=== PATIENT | female | born 1935 | race Caucasian/White ===

== ENCOUNTER 2017-06-28 17:28 | Inpatient (IN) | payer MEDICARE, OTHER ==
[2017-06-28 17:54] LABS: Granulocyte Absolute (ANC) 10.23 (1.4-6.9); Hemoglobin 12.6 gm/dl (12.0-16.0); Mean Cell Volume 85.4 fl (78-100); Mean Corpuscular Hemoglobin 28.3 pg (26-32); Mean Corpuscular Hgb Concent. 33.2 g/dl (32-36); Mean Platelet Volume 10.2 fl (6-9.5); Platelet Count 290 K/mm3 (150-450); Red Blood Count 4.45 M/mm3 (4.1-5.4); Red Cell Distribution Width 15.8 % (11.5-14.0); White Blood Count 13.7 K/mm3 (4.0-10.5)
[2017-06-28 18:09] LABS: ANION GAP 15.9 MEQ/L (5-15); BILIRUBIN,TOTAL 0.5 mg/dL (0.2-1.3); Calcium 10.4 mg/dL (8.4-10.2); Creatinine 1 1.28 mg/dL (0.52-1.04); Potassium 4.4 mmol/L (3.5-5.1); Total Protein 7.6 g/dL (6.3-8.2)
[2017-06-28] MEDS ORDERED: DUONEB 0.5-3 MG/3 ml Neb IH ONE ×2 (18:33→18:43)
[2017-06-28] MEDS ORDERED: ROCEPHIN 1 Gm-D5w 50 ml Bag** 1 G/50 ML IVPB IV STA (18:34)
--- NOTE | 2017-06-28 19:06 | ERPHSYRPT ---
- History of Present Illness Time Seen by Provider: 06/28/17 18:19 Source: patient, family (daughter in law) Patient Subjective Stated Complaint: pt here for pain to chest nonradiating, pt also co pain to head,no fver, cough,nonproductive Triage Nursing Assessment: pt alert, resp easy,skin w/d/p,no edeman Physician History: CC: cough Hx: 81 y/o patient who formerly saw Dr Torres العراقي who since retired. She saw [facility] for cough of few days duration. She was given an abtx shot and Rx for zithromax. She is almost done with the zithromax. She continues to have cough, phlegm, low grade fever. Some chest discomfort with coughing. Not short of breath. Severity: moderate Allergies/Adverse Reactions: aspirin [From Aggrenox] Allergy (Verified 06/28/17 17:45) clonidine Allergy (Verified 06/28/17 17:45) dipyridamole [From Aggrenox] Allergy (Verified 06/28/17 17:45) Hx Influenza Vaccination/Date Given: Yes Hx Pneumococcal Vaccination/Date Given: Yes Immunizations Up to Date: Yes - Review of Systems Constitutional: Fever, Fatigue, Malaise Eyes: No Symptoms Ears, Nose, & Throat: No Symptoms Respiratory: Cough, No Dyspnea Cardiac: Chest Pain (with cough) Abdominal/Gastrointestinal: No Abdominal Pain, No Nausea, No Vomiting, No Diarrhea Skin: No Rash Neurological: No Headache All Other Systems: Reviewed and Negative - Past Medical History Pertinent Past Medical History: Yes Cardiac History: High Cholesterol, Hypertension Endocrine Medical History: Diabetes Type II, Hypothyroidism Other Medical History: factor 5 - Past Surgical History Past Surgical History: Yes Female Surgical History: Hysterectomy Other Surgical History: bladder surgery, skin ca removed - Social History Smoking Status: Never smoker Exposure to second hand smoke: No Drug Use: none Patient Lives Alone: Yes - Female History Hx Last Menstrual Period: post Hx Now: No - Nursing Vital Signs Nursing Vital Signs: Initial Vital Signs Temperature 99.5 F 06/28/17 17:33 Pulse Rate 79 06/28/17 17:33 Respiratory Rate 16 06/28/17 17:33 Blood Pressure 145/75 06/28/17 17:33 Pain Scale Pain Intensity 4 - Physical Exam General Appearance: alert Eye Exam: PERRL/EOMI Ears, Nose, Throat Exam: normal ENT inspection, moist mucous membranes Neck Exam: normal inspection, non-tender, supple Respiratory Exam: crackles/rales (both bases) Cardiovascular Exam: regular rate/rhythm Gastrointestinal/Abdomen Exam: soft, No tenderness, No distention Back Exam: normal inspection, normal range of motion Extremity Exam: normal inspection, normal range of motion, No calf tenderness, No pedal edema Neurologic Exam: alert, oriented x 3, cooperative, sensation nml, No motor deficits Skin Exam: warm, dry, No rash SpO2 Interpretation: hypoxic, O2 applied SpO2: 90 Oxygen Delivery: Room Air - Course Nursing assessment & vital signs reviewed: Yes EKG Interpreted by Me: RATE (77), Sinus Rhythm, NORMAL AXIS, NORMAL INTERVALS ( QTc 401), NORMAL QRS, NORMAL ST-T - Radiology Exams cxr X-ray Interpretation: Reviewed by me (mild interval developement of bibasilar infiltrates) Ordered Tests: Active Orders 24 hr Category Date Time Status Garnett Machine Operator STAT Care 06/28/17 17:49 Active EKG-ER Only STAT Care 06/28/17 17:48 Active IV Insertion STAT Care 06/28/17 17:48 Active Oxygen-ED Only NASAL CANNULA 2 lpm Care 06/28/17 17:48 Active Pulse Oximetry (ED) STAT Care 06/28/17 17:48 Active CHEST 2 VIEWS (PA AND LAT) Stat Exams 06/28/17 17:49 Taken BLOOD CULTURE Stat Lab 06/28/17 18:33 Ordered CBC W DIFF Stat Lab 06/28/17 17:40 Completed CMP Stat Lab 06/28/17 17:40 Completed Manual Differential NC Stat Lab 06/28/17 17:40 Completed TROPONIN Q3H Lab 06/28/17 17:40 Completed TROPONIN Q3H Lab 06/28/17 21:00 Ordered TROPONIN Q3H Lab 06/29/17 00:00 Ordered TROPONIN Q3H Lab 06/29/17 03:00 Ordered TROPONIN Q3H Lab 06/29/17 06:00 Ordered Respiratory Nebulizer STAT RT 06/28/17 18:34 Active Medication Summary Generic Name Dose Route Start Last Admin Trade Name Freq PRN Reason Stop Dose Admin Ceftriaxone Sodium/Dextrose 1 g in 50 mls @ 100 mls/hr 06/28/17 18:34 Rocephin 1 Gm-D5w 50 Ml Bag IV 06/28/17 19:03 STAT STA Discontinued Medications Generic Name Dose Route Start Last Admin Trade Name Eliu PRN Reason Stop Dose Admin Albuterol/Ipratropium 3 ml 06/28/17 18:33 Duoneb 0.5-3 Mg/3 Ml Neb IH 06/28/17 18:34 STAT ONE Albuterol/Ipratropium Confirm 06/28/17 18:43 Duoneb 0.5-3 Mg/3 Ml Neb Administered 06/28/17 18:44 Dose 3 ml IH .STK-MED ONE Lab/Rad Data: Laboratory Result Diagrams 06/28/17 17:40 06/28/17 17:40 Laboratory Results 06/28/17 06/28/17 06/28/17 Range/Units 17:40 17:40 17:40 WBC 13.7 H (4.0-10.5) K/mm3 RBC 4.45 (4.1-5.4) M/mm3 Hgb 12.6 (12.0-16.0) gm/dl Hct 38.0 (35-47) % MCV 85.4 (78-100) fl MCH 28.3 (26-32) pg MCHC 33.2 (32-36) g/dl RDW 15.8 H (11.5-14.0) % Plt Count 290 (150-450) K/mm3 MPV 10.2 H (6-9.5) fl Sodium 139 (137-145) mmol/L Potassium 4.4 (3.5-5.1) mmol/L Chloride 100 (98-107) mmol/L Carbon Dioxide 27 (22-30) mmol/L Anion Gap 15.9 H (5-15) MEQ/L BUN 35 H (7-17) mg/dL Creatinine 1.28 H (0.52-1.04) mg/dL Estimated GFR 42 ML/MIN Glucose 114 H (74-106) mg/dL Calcium 10.4 H (8.4-10.2) mg/dL Total Bilirubin 0.50 (0.2-1.3) mg/dL AST 25 (14-36) U/L ALT 19 (0-35) U/L Alkaline Phosphatase 81 (38-126) U/L Troponin I < 0.012 (0.000-0.034) ng/mL Serum Total Protein 7.6 (6.3-8.2) g/dL Albumin 4.0 (3.5-5.0) g/dL - Progress Progress Note: 06/28/17 19:06 She has low grade fever. She has failed OP treatment. Blood cultures sent. Flu pending. Will admit for IV rocephin, nebs, and oxygen. Called Dr Jason Cordero for [facility]. Discussed with Dr.: Alexander Will see patient in: hospital (full admit) Counseled pt/family regarding: lab results, diagnosis, need for follow-up, rad results - Departure Time of Disposition: 19:07 Departure Disposition: In-patient Admission Clinical Impression: Hypoxemia Pneumonia Qualifiers: Pneumonia type: due to unspecified organism Laterality: bilateral Condition: Fair Critical Care Time: No
[2017-06-28] MEDS ORDERED: ROCEPHIN 1 Gm-D5w 50 ml Bag** 1 G/50 ML IVPB IV ONE (19:09)
[2017-06-28 20:24] LABS: INFLUENZA A NEGATIVE (NEGATIVE); INFLUENZA B NEGATIVE (NEGATIVE); RESPIRATORY SYNCTIAL VIRUS NEGATIVE (Negative)
[2017-06-28] MEDS: TYLENOL 325 MG PO PRN (21:35)
[2017-06-28] MEDS: Pepcid 20 MG VIAL IV SCH (21:36)
[2017-06-28] MEDS ORDERED: DUONEB 0.5-3 MG/3 ml Neb IH SCH (23:00)
[2017-06-29] MEDS ORDERED: ECOTRIN 81 MG PO ONE (00:28)
[2017-06-29] MEDS: ECOTRIN 81 MG PO SCH ×2 (00:35→21:29)
[2017-06-29] MEDS: ZOCOR 20MG PO SCH ×2 (00:35→21:29)
[2017-06-29] MEDS: Apresoline 25 MG TABLET PO SCH ×4 (00:35→21:29)
[2017-06-29] MEDS: Lactated Ringers 500 ML IV SCH ×2 (00:35→21:36)
[2017-06-29 02:04] LABS: Lymphocytes 17 % (24-44); Monocyte 9 % (0.0-12.0); Neutrophils 74 % (36.0-66.0); Platelet Estimate NORMAL (NORMAL); Total Cells Counted 100
[2017-06-29] MEDS ORDERED: DUONEB 0.5-3 MG/3 ml Neb IH ONE (03:28)
[2017-06-29] MEDS: TYLENOL 325 MG PO PRN ×2 (04:57→23:11)
[2017-06-29] MEDS: DUONEB 0.5-3 MG/3 ml Neb IH SCH ×5 (07:14→23:53)
[2017-06-29] MEDS ORDERED: NovoLOG Insulin SQ PRN (07:26)
--- NOTE | 2017-06-29 07:38 | PCM.HP ---
History of Present Illness - Chief Complaint Chief Complaint: Pneumonia Date: 06/29/17 History of Present Illness: is a 81 year old female. she became sick Thursday with coughing and congestion and shortness of breath [facility] and clinically felt to have pneumonia so given "a shot" and zpack and felt better but poor again thursday weak and short of breath and was not improving and finally Thursday came to ED. She lives at [facility] with multiple sick contacts from influenza but her serology was negative. - Review of Systems Constitutional: Fever, Fatigue, No Chills Eyes: No Symptoms Ears, Nose, & Throat: No Symptoms Respiratory: Cough Cardiac: No Chest Pain, No Edema, No Syncope Abdominal/Gastrointestinal: No Abdominal Pain, No Nausea, No Vomiting, No Diarrhea Genitourinary Symptoms: No Dysuria Musculoskeletal: No Back Pain, No Neck Pain Skin: No Rash Neurological: No Dizziness, No Focal Weakness, No Sensory Changes Psychological: No Symptoms Endocrine: No Symptoms Hematologic/Lymphatic: No Symptoms Immunological/Allergic: No Symptoms Medications & Allergies Home Medications: Home Medication List Amlodipine Besylate [Amlodipine Besylate] 5 mg PO BID 06/28/17 [History Confirmed 06/28/17] Aspirin 81 gm Chew [Baby Aspirin 81 mg Chew] 81 mg PO HS 06/28/17 [ History Confirmed 06/28/17] Calcium Carbonate/Vitamin D3 [Calcium 600 + Vit D 400 Tablet] 1 each PO BID [History Confirmed 06/28/17] Cholecalciferol (Vitamin D3) [Vitamin D] 400 unit PO LUNCH 06/28/17 [ History Confirmed 06/28/17] HydrALAzine HCL 25 MG TAB [Apresoline 25 MG TABLET] 50 mg PO TID 06/28/17 [History Confirmed 06/28/17] Krill Oil/[place]-3/Dha/Epa [[place]-3 Krill Oil Softgel] 1 each PO LUNCH 06/28/17 [ History Confirmed 06/28/17] Levothyroxine Sodium 112 Mcg [Synthroid 112 Mcg] 112 mcg PO DAILY 06/28/17 [History Confirmed 06/28/17] Losartan Potassium [Losartan Potassium] 50 mg PO BID 06/28/17 [History Confirmed 06/28/17] Metformin HCl Xr 500 mg [Glucophage XR 500 MG] 500 mg PO LUNCH 06/28/17 [ History Confirmed 06/28/17] Metoprolol Tartrate [Metoprolol Tartrate] 25 mg PO BID 06/28/17 [History Confirmed 06/28/17] Multivitamins,Therapeutic Tab* [Theragran Multivitamin] 1 tab PO DAILY [History Confirmed 06/28/17] Rosuvastatin Calcium 10 mg PO HS 06/28/17 [History Confirmed 06/28/17] Vit C/E/Zn/Coppr/Lutein/Zeaxan [Preservision Areds 2 Softgel] 1 each PO BID [History Confirmed 06/28/17] Allergies/Adverse Reactions: Allergies Allergy/AdvReac Type Severity Reaction Status Date / Time aspirin [From Aggrenox] Allergy Verified 06/28/17 17:45 clonidine Allergy Verified 06/28/17 17:45 dipyridamole [From Aggrenox] Allergy Verified 06/28/17 17:45 - Past Medical History Past Medical History: Yes Cardiac History: High Cholesterol, Hypertension Endocrine Medical History: Diabetes Type II, Hypothyroidism Comment: factor 5 - Female History Hx Last Menstrual Period: post Are you now?: No - Past Surgical History Past Surgical History: Yes Female Surgical History: Hysterectomy Other Surgical History: bladder surgery, skin ca removed - Social History Smoking Status: Never smoker Exposure to second hand smoke: No Alcohol: None Drug Use: none - Physical Exam Vital Signs: Vital Signs - 24 hr Temp Pulse Pulse Resp BP BP Pulse Ox 06/29/17 04:05 97.8 F 76 22 141/66 95 06/29/17 00:56 76 20 93 L 06/29/17 00:00 97.9 F 76 20 142/63 93 L 06/28/17 21:40 98.9 F 80 22 170/71 93 L 06/28/17 19:28 75 18 159/67 92 L 06/28/17 19:07 90 L 06/28/17 18:50 75 16 96 06/28/17 18:20 92 L 06/28/17 17:33 99.5 F 77 79 16 145/75 Oxygen-Last 24 hours O2 Percentage 3 Liters = 32% O2 Percentage 3 Liters = 32% O2 Percentage 2 Liters = 28% O2 Percentage 2 Liters = 28% Oxygen Flowrate (L/min)-RT 3 General Appearance: no apparent distress, alert Neurologic Exam: alert, oriented x 3, cooperative, normal mood/affect, nml cerebellar function, nml station & gait, sensation nml, No motor deficits Eye Exam: PERRL/EOMI, eyes nml inspection Ears, Nose, Throat Exam: normal ENT inspection, pharynx normal, moist mucous membranes Neck Exam: normal inspection, non-tender, supple, full range of motion Respiratory Exam: crackles/rales (bibasilar more prominent on right), No respiratory distress, No rhonchi, No wheezing Cardiovascular Exam: regular rate/rhythm, murmur (holosystolic) Gastrointestinal/Abdomen Exam: soft, normal bowel sounds, No tenderness, No mass Back Exam: normal inspection, normal range of motion, No CVA tenderness, No vertebral tenderness Extremity Exam: normal inspection, normal range of motion, pelvis stable Skin Exam: normal color, warm, dry, No rash Lymphatic Exam: No adenopathy Results - Other Procedures and Tests Respiratory Therapy 06/29/17 07:00 neb [Respiratory Nebulizer] Q4H Assessment/Plan (1) Pneumonia Current Visit: Yes Status: Acute Qualifiers: Pneumonia type: due to unspecified organism Laterality: bilateral Assessment & Plan: failed outpatient therapy with azithromycin continue rocehin and oxygen add hycrocortison wean O2 as tolerated lovenox ppx Code(s): J18.9 - PNEUMONIA, UNSPECIFIED ORGANISM (2) Acute hypoxemic respiratory failure Current Visit: Yes Status: Acute Assessment & Plan: improving on 3L nc O2 Code(s): J96.01 - ACUTE RESPIRATORY FAILURE WITH HYPOXIA (3) Essential hypertension Current Visit: Yes Status: Chronic Code(s): I10 - ESSENTIAL (PRIMARY) HYPERTENSION (4) Stage 3a chronic kidney disease Current Visit: Yes Status: Chronic Code(s): N18.3 - CHRONIC KIDNEY DISEASE, STAGE 3 (MODERATE) (5) Impaired fasting glucose Current Visit: Yes Status: Chronic Code(s): R73.01 - IMPAIRED FASTING GLUCOSE (6) Hypothyroid Current Visit: Yes Status: Acute Assessment & Plan: follows outpatient with Dr. Alicea Code(s): E03.9 - HYPOTHYROIDISM, UNSPECIFIED (7) Heart murmur Current Visit: Yes Status: Chronic Assessment & Plan: follows with Dr. Baltazar for "leaky valve" Code(s): R01.1 - CARDIAC MURMUR, UNSPECIFIED
[2017-06-29] MEDS: solu-CORTEF 100MG IV SCH ×3 (08:06→21:29)
--- NOTE | 2017-06-29 08:57 | XRAY ---
Indication: Chest pain and cough. Comparison: June 24, 2017. PA/lateral chest again demonstrates COPD and scattered fibrosis/scarring. New bibasilar infiltrates versus atelectasis with tiny effusions. Heart is not enlarged with stable large hiatal hernia.
[2017-06-29] MEDS: Lopressor 25MG Tab PO SCH ×2 (09:18→12:03)
[2017-06-29] MEDS: Cozaar 50 MG PO SCH ×2 (09:18→12:03)
[2017-06-29] MEDS: Ocuvite Tablet PO SCH ×2 (09:18→21:29)
[2017-06-29] MEDS: ROCEPHIN 1 Gm-D5w 50 ml Bag** 1 G/50 ML IVPB IV SCH (09:19)
[2017-06-29] MEDS: Pepcid 20 MG VIAL IV SCH ×2 (09:19→21:29)
[2017-06-29] MEDS: SYNTHROID 112 MCG PO SCH (09:19)
[2017-06-29] MEDS: ENOXAPARIN SODIUM SQ SCH (09:19)
[2017-06-29] MEDS: NORVASC 5 MG PO SCH ×2 (09:21→12:03)
[2017-06-29] MEDS ORDERED: NON-FORMULARY ITEM (Vit C/E/Zn/Coppr/Lutein/Zeaxan [Preservision Areds 2 Softgel] 1 EACH) PO SCH (10:00)
[2017-06-29] MEDS ORDERED: EPA PO SCH (12:00)
[2017-06-29] MEDS ORDERED: DHA PO SCH (12:00)
[2017-06-29] MEDS ORDERED: KRILL OIL PO SCH (12:00)
[2017-06-29] MEDS ORDERED: OMEGA PO SCH (12:00)
[2017-06-29] MEDS: FISH OIL 1,000 MG CAPSULE PO SCH (12:03)
[2017-06-30] MEDS: solu-CORTEF 100MG IV SCH ×4 (01:44→22:08)
[2017-06-30] MEDS: DUONEB 0.5-3 MG/3 ml Neb IH SCH ×5 (03:34→19:19)
[2017-06-30 05:37] LABS: Granulocyte Absolute (ANC) 8.71 (1.4-6.9); Hematocrit 35.2 % (35-47); Hemoglobin 11.6 gm/dl (12.0-16.0); Mean Cell Volume 85.4 fl (78-100); Mean Platelet Volume 10.2 fl (6-9.5); Platelet Count 277 K/mm3 (150-450); Red Blood Count 4.12 M/mm3 (4.1-5.4); Red Cell Distribution Width 15.8 % (11.5-14.0)
[2017-06-30 05:52] LABS: Mean Corpuscular Hemoglobin 28.1 pg (26-32)
[2017-06-30 05:59] LABS: ALBUMIN 3.5 g/dL (3.5-5.0); ANION GAP 14.7 MEQ/L (5-15); BILIRUBIN,TOTAL 0.2 mg/dL (0.2-1.3); Calcium 9.3 mg/dL (8.4-10.2); Creatinine 1 1.02 mg/dL (0.52-1.04); Potassium 4.1 mmol/L (3.5-5.1); Total Protein 6.6 g/dL (6.3-8.2)
[2017-06-30 06:24] LABS: Lymphocytes 7 % (24-44); Monocyte 2 % (0.0-12.0); Neutrophils 91 % (36.0-66.0); Total Cells Counted 100
[2017-06-30 06:25] LABS: Platelet Estimate NORMAL (NORMAL)
[2017-06-30] MEDS: Lactated Ringers 500 ML IV SCH ×2 (07:02→20:32)
--- NOTE | 2017-06-30 07:02 | PCM.NOTE ---
Date and Time: 06/30/17 0650 Subjective Assessment: tried to wean to room air yesterday was not successful with desat to mid 80's at rest improved with 3L NC O2. She has still been coughing nonproductive otherwise feeling well Objective Exam General Appearance: no apparent distress, alert Neurologic Exam: alert, oriented x 3, cooperative, normal mood/affect, nml cerebellar function, sensation nml, No motor deficits Skin Exam: normal color, warm, dry Eye Exam: PERRL, EOMI, eyes nml inspection Ears, Nose, Throat Exam: normal ENT inspection, pharynx normal, moist mucous membranes Neck Exam: normal inspection, non-tender, supple, full range of motion Respiratory Exam: crackles/rales (bibasilar), No respiratory distress Cardiovascular Exam: regular rate/rhythm, normal heart sounds Gastrointestinal/Abdomen Exam: soft, No tenderness, No mass Extremity Exam: normal inspection, normal range of motion Back Exam: normal inspection, normal range of motion, No CVA tenderness, No vertebral tenderness Pelvic Exam: deferred Rectal Exam: deferred OBJECTIVE DATA Vital Signs: Vital Signs - 24 hr Temp Pulse Resp BP Pulse Ox 06/30/17 06:39 78 16 94 L 06/30/17 04:00 97.7 F 92 H 16 156/68 95 06/30/17 03:34 92 H 16 95 06/30/17 00:00 97.9 F 100 H 20 129/60 95 06/29/17 23:53 91 H 20 94 L 06/29/17 21:02 82 22 92 L 06/29/17 20:00 98.3 F 82 26 H 158/68 92 L 06/29/17 16:25 98.4 F 84 28 H 146/61 94 L 06/29/17 12:00 97.8 F 97 H 32 H 142/65 97 06/29/17 11:00 88 18 98 06/29/17 07:41 98.1 F 69 20 160/70 92 L 06/29/17 07:00 69 18 92 L Oxygen-Last 24 hours O2 Percentage 3 Liters = 32% O2 Percentage 3 Liters = 32% Oxygen Flowrate (L/min)-RT 2 Oxygen Flowrate (L/min)-RT 3 Oxygen Flowrate (L/min)-RT 3 Oxygen Flowrate (L/min)-RT 3 Pain Assessment - Last Documented Pain Intensity 0 Pain Scale Used 0-10 Pain Scale Intake and Output: Intake & Output 06/27/17 06/28/17 06/29/17 06/30/17 11:59 11:59 11:59 11:59 Intake Total 1145 760 Output Total 550 760 Balance 595 0 Weight 73.5 kg Lab Results: Accuchecks Date 06/30/17 Accucheck Value: 154 Accucheck Value: 116 Accucheck Value: 111 Lab Results-Last 24 Hours 06/30/17 06/30/17 06/30/17 Range/Units 05:05 05:05 05:05 WBC 10.0 (4.0-10.5) K/mm3 RBC 4.12 (4.1-5.4) M/mm3 Hgb 11.6 L (12.0-16.0) gm/dl Hct 35.2 (35-47) % MCV 85.4 (78-100) fl MCH 28.1 (26-32) pg MCHC 33.0 (32-36) g/dl RDW 15.8 H (11.5-14.0) % Plt Count 277 (150-450) K/mm3 MPV 10.2 H (6-9.5) fl Segmented Neutrophils 91 H (36.0-66.0) % Lymphocytes (Manual) 7 L (24-44) % Monocytes (Manual) 2 (0.0-12.0) % Differential Comment NORMAL Platelet Estimate NORMAL (NORMAL) Sodium 137 (137-145) mmol/L Potassium 4.1 (3.5-5.1) mmol/L Chloride 101 (98-107) mmol/L Carbon Dioxide 25 (22-30) mmol/L Anion Gap 14.7 (5-15) MEQ/L BUN 31 H (7-17) mg/dL Creatinine 1.02 (0.52-1.04) mg/dL Estimated GFR 55 ML/MIN Glucose 152 H (74-106) mg/dL Hemoglobin A1c 5.86 (4.5-6.0) % Calcium 9.3 (8.4-10.2) mg/dL Total Bilirubin 0.20 (0.2-1.3) mg/dL AST 19 (14-36) U/L ALT 15 (0-35) U/L Alkaline Phosphatase 69 (38-126) U/L Serum Total Protein 6.6 (6.3-8.2) g/dL Albumin 3.5 (3.5-5.0) g/dL Multi-Disciplinary Progress Notes: Multi-Disciplinary Progress Notes 06/29/17 20:25 Respiratory Note by Evan Rae PT REQUESTED THAT I COME BACK AT 2100 FOR HER TX SHE HAD VISITORS. Initialized on 06/29/17 20:25 - END OF NOTE Assessment/Plan (1) Pneumonia Current Visit: Yes Status: Acute Qualifiers: Pneumonia type: due to unspecified organism Laterality: bilateral Assessment & Plan: improving with rocephin still with hypoxemia star Incentive spirometry wean O2 if able do overnight pulse oximetry study tonight she states she had difficulty getting off O2 2 years ago at hospitalization in [place] as well. Code(s): J18.9 - PNEUMONIA, UNSPECIFIED ORGANISM (2) Acute hypoxemic respiratory failure Current Visit: Yes Status: Acute Code(s): J96.01 - ACUTE RESPIRATORY FAILURE WITH HYPOXIA (3) Essential hypertension Current Visit: Yes Status: Chronic Code(s): I10 - ESSENTIAL (PRIMARY) HYPERTENSION (4) Stage 3a chronic kidney disease Current Visit: Yes Status: Chronic Code(s): N18.3 - CHRONIC KIDNEY DISEASE, STAGE 3 (MODERATE) (5) Impaired fasting glucose Current Visit: Yes Status: Chronic Code(s): R73.01 - IMPAIRED FASTING GLUCOSE (6) Hypothyroid Current Visit: Yes Status: Acute Code(s): E03.9 - HYPOTHYROIDISM, UNSPECIFIED (7) Heart murmur Current Visit: Yes Status: Chronic Code(s): R01.1 - CARDIAC MURMUR, UNSPECIFIED
[2017-06-30] MEDS ORDERED: Lactated Ringers 500 ML IV SCH (07:30)
[2017-06-30] MEDS: Cozaar 50 MG PO SCH ×2 (11:54→13:56)
[2017-06-30] MEDS: Ocuvite Tablet PO SCH ×2 (11:54→22:09)
[2017-06-30] MEDS: Apresoline 25 MG TABLET PO SCH ×3 (11:54→22:08)
[2017-06-30] MEDS: ENOXAPARIN SODIUM SQ SCH (11:54)
[2017-06-30] MEDS: ROCEPHIN 1 Gm-D5w 50 ml Bag** 1 G/50 ML IVPB IV SCH (11:55)
[2017-06-30] MEDS: SYNTHROID 112 MCG PO SCH (11:55)
[2017-06-30] MEDS: NORVASC 5 MG PO SCH ×2 (12:11→13:56)
[2017-06-30] MEDS: Lopressor 25MG Tab PO SCH ×2 (12:11→13:55)
[2017-06-30] MEDS: Pepcid 20 MG PO SCH ×2 (12:11→22:11)
[2017-06-30] MEDS: FISH OIL 1,000 MG CAPSULE PO SCH (12:11)
[2017-06-30] MEDS: ECOTRIN 81 MG PO SCH (22:09)
[2017-06-30] MEDS: ZOCOR 20MG PO SCH (22:09)
[2017-07-01] MEDS: DUONEB 0.5-3 MG/3 ml Neb IH SCH ×4 (00:35→10:43)
[2017-07-01] MEDS: solu-CORTEF 100MG IV SCH ×2 (04:39→08:33)
--- NOTE | 2017-07-01 08:23 | PCM.DS ---
Discharge Summary Date of Admission: 06/28/17 21:04 Date of Discharge: 07/01/2017 Admitting Physician: ESME OLIVER Primary Care Provider: ESME OLIVER Allergies Allergies aspirin [From Aggrenox] Allergy (Verified 06/28/17 17:45) clonidine Allergy (Verified 06/28/17 17:45) dipyridamole [From Aggrenox] Allergy (Verified 06/28/17 17:45) Hospital Summary - Hospital Course Hospital Course: Ms. Manzano lives at home alone and was treated as an outpatient for pneumonia with azithromycin but was not improving and had cxr showing worsening disease and hypoxemia. SHe was treated and improving on Rocephin. She was started on hydrocrotisone q6h as well at 50 mg with good results. SHe notes she had difficulty getting off oxygen when she was in the hospital 2 years ago for pneumonia as well. She was clinically improving and stable but requiring O2 overnight pulse ox was done with prolonged period in the 80 to 90% range. She had 6 min walk test done as well with desaturation recorded with this improved with 2L NC O2. She was discharged home on omnicef and home oxygen. f/u this week. - Vitals & Intake/Output Vital Signs: Vital Signs Temperature 97.8 F 07/01/17 07:30 Pulse Rate 85 07/01/17 07:30 Respiratory Rate 20 07/01/17 07:30 Blood Pressure 175/75 07/01/17 07:30 O2 Sat by Pulse Oximetry 92 L 07/01/17 07:30 Oxygen-Last Documented O2 Percentage 3 Liters = 32% Intake & Output: Intake & Output 06/28/17 06/29/17 06/30/17 07/01/17 11:59 11:59 11:59 11:59 Intake Total 1145 1120 720 Output Total 358 637 0925 Balance 595 360 -480 Weight 73.5 kg - Lab Result Diagrams: 06/30/17 05:05 06/30/17 05:05 Lab Results-Last 24 Hrs: Accuchecks Date 06/30/17 Accucheck Value: 132 Accucheck Value: 112 Accucheck Value: 143 Micro Results-Entire Visit: Accuchecks Date 06/30/17 Accucheck Value: 132 Accucheck Value: 112 Accucheck Value: 143 - Procedures and Test Procedures and Tests throughout Hospitalization: Therapy Orders & Screens 06/29/17 07:00 neb [Respiratory Nebulizer] Q4H Comment: Diagnosis: Pneumonia 06/30/17 07:01 Incentive Spirometry Assessmen UD Comment: Diagnosis: Pneumonia 07/01/17 08:20 Qualify for Home Oxygen ROUTINE Comment: Diagnosis: Pneumonia Discharge Exam General Appearance: no apparent distress, alert Neurologic Exam: alert, oriented x 3, cooperative, normal mood/affect, nml cerebellar function, sensation nml, No motor deficits Skin Exam: normal color, warm, dry Eye Exam: PERRL, EOMI, eyes nml inspection Ears, Nose, Throat Exam: normal ENT inspection, pharynx normal, moist mucous membranes Neck Exam: normal inspection, non-tender, supple, full range of motion Respiratory Exam: crackles/rales (bibasilar), No respiratory distress Cardiovascular Exam: regular rate/rhythm, normal heart sounds Gastrointestinal/Abdomen Exam: soft, No tenderness, No mass Extremity Exam: normal inspection, normal range of motion Back Exam: normal inspection, normal range of motion, No CVA tenderness, No vertebral tenderness Pelvic Exam: deferred Rectal Exam: deferred Final Diagnosis/Problem List - Final Discharge Diagnosis/Problem (1) Pneumonia Status: Acute (2) Acute hypoxemic respiratory failure Status: Acute (3) Essential hypertension Status: Chronic (4) Stage 3a chronic kidney disease Status: Chronic (5) Impaired fasting glucose Status: Chronic (6) Hypothyroid Status: Acute (7) Heart murmur Status: Chronic - Discharge Discharge Date: 07/01/17 Disposition: Home, Self-Care Condition: Stable Prescriptions: New Cefdinir [Omnicef] 300 mg PO BID #10 capsule Continue Metoprolol Tartrate 25 mg PO BID Cholecalciferol (Vitamin D3) [Vitamin D] 400 unit PO LUNCH Krill Oil/[place]-3/Dha/Epa [[place]-3 Krill Oil Softgel] 1 each PO LUNCH Levothyroxine Sodium 112 Mcg [Synthroid 112 Mcg] 112 mcg PO DAILY Metformin HCl Xr 500 mg [Glucophage XR 500 MG] 500 mg PO LUNCH Losartan Potassium 50 mg PO BID Amlodipine Besylate 5 mg PO BID Vit C/E/Zn/Coppr/Lutein/Zeaxan [Preservision Areds 2 Softgel] 1 each PO BID Calcium Carbonate/Vitamin D3 [Calcium 600 + Vit D 400 Tablet] 1 each PO BID Multivitamins,Therapeutic Tab* [Theragran Multivitamin] 1 tab PO DAILY HydrALAzine HCL 25 MG TAB [Apresoline 25 MG TABLET] 50 mg PO TID Aspirin 81 gm Chew [Baby Aspirin 81 mg Chew] 81 mg PO HS Rosuvastatin Calcium 10 mg PO HS Instructions: Pneumonia, Adult (DC) Additional Instructions: [facility] TO SERVICE YOUR OXYGEN NEEDS PER YOUR REQUEST OF PROVIDER. YOU MAY REACH THEM AT [phone] FOR ANY NEEDS. Follow up with: ESME OLIVER [Primary Care Provider] - 07/08/17 9:30 am Forms: Discharge Instructions
[2017-07-01] MEDS: Ocuvite Tablet PO SCH (09:42)
[2017-07-01] MEDS: NORVASC 5 MG PO SCH ×2 (09:42→11:46)
[2017-07-01] MEDS: ENOXAPARIN SODIUM SQ SCH (09:42)
[2017-07-01] MEDS: SYNTHROID 112 MCG PO SCH (09:43)
[2017-07-01] MEDS: Lopressor 25MG Tab PO SCH ×2 (09:43→11:46)
[2017-07-01] MEDS: Cozaar 50 MG PO SCH ×2 (09:43→11:46)
[2017-07-01] MEDS: Apresoline 25 MG TABLET PO SCH (09:43)
[2017-07-01] MEDS: Pepcid 20 MG PO SCH (09:43)
[2017-07-01] MEDS: FISH OIL 1,000 MG CAPSULE PO SCH (11:46)
[2017-07-01 12:40] VITALS: BP 155/67; PULSE 72; O2SAT 95
== END 2017-07-01 12:32 | disposition home or self-care (01) | DRG 193 ==
LOC: ED 17:28 → MED SURG 21:04
PROVIDERS: ADMIT Family Medicine; ATTEND Family Medicine
DX: R09.02 Hypoxemia (principal); J18.9 Pneumonia, unspecified organism; I10 Essential (primary) hypertension; J96.01 Acute respiratory failure with hypoxia; I12.9 Hypertensive chronic kidney disease with stage 1 through stage 4 chronic kidney disease, or unspecified chronic kidney disease; N18.3 Chronic kidney disease, stage 3 (moderate); R73.01 Impaired fasting glucose; E03.9 Hypothyroidism, unspecified; R01.1 Cardiac murmur, unspecified; E11.9 Type 2 diabetes mellitus without complications
CPT/HCPCS: 36000; 36415; 71046; 80053; 82962; 83036; 84484; 85025; 87040; 87631; 93005; 93041; 94150; 94640; 94760; 96365; 99285; J0696; J1650; J1720; A9270-GY

== ENCOUNTER 2018-07-08 17:32 | Emergency (ER) | payer MEDICARE ==
--- NOTE | 2018-07-08 18:49 | ERPHSYRPT ---
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 pt fell from standing height, pt fell onto carpeted nghia, pt put her hands out to break her fall. pt denies LOC, pt denies striking her head or any other injury. pt reports pain to the right wrist that radiates up the forearm, pain is worse with movement. Triage Nursing Assessment: pt is axo3, pupils perrl, afebrile, resps easy and non labored, radial pulses are strong and equal, deformity noted to the right wrist with swelling, skin is intact, pt sensation is intact, ROM is limited due to pain, cap refill < 3 seconds. pt skin pink warm dry. no other obvious injury or deformity noted. Physician History: 82 y/o right handed white female presents with right wrist pain and swelling after a fall. pt tripped over an ottoman at home. no head or neck injury. Occurred: just prior to arrival Reason for Fall: tripped Injuries/Pain Location: upper extremity (right wrist) Loss of Consciousness: no loss of consciousness Severity of Pain-Max: moderate Severity of Pain-Current: mild (when not moving it) Modifying Factors: Improves With: immobilization (better), movement (worsens) Associated Symptoms (Fall): denies symptoms Allergies/Adverse Reactions: clonidine Allergy (Verified 07/08/18 18:00) dipyridamole [From Aggrenox] Allergy (Verified 07/08/18 18:00) Home Medications: Amlodipine Besylate 5 mg PO BID 06/28/17 [History] Aspirin 81 gm Chew [Baby Aspirin 81 mg Chew] 81 mg PO HS 06/28/17 [History ] Calcium Carbonate/Vitamin D3 [Calcium 600 + Vit D 400 Tablet] 1 each PO BID [History] Cholecalciferol (Vitamin D3) [Vitamin D] 400 unit PO LUNCH 06/28/17 [ History] HydrALAzine HCL 25 MG TAB [Apresoline 25 MG TABLET] 50 mg PO TID 06/28/17 [History] Krill Oil/[place]-3/Dha/Epa [[place]-3 Krill Oil Softgel] 1 each PO LUNCH 06/28/17 [ History] Levothyroxine Sodium 112 Mcg [Synthroid 112 Mcg] 112 mcg PO DAILY 06/28/17 [History] Losartan Potassium 50 mg PO BID 06/28/17 [History] Metformin HCl Xr 500 mg [Glucophage XR 500 MG] 500 mg PO LUNCH 06/28/17 [ History] Metoprolol Tartrate 25 mg PO BID 06/28/17 [History] Multivitamins,Therapeutic Tab* [Theragran Multivitamin] 1 tab PO DAILY [History] Rosuvastatin Calcium 10 mg PO HS 06/28/17 [History] Vit C/E/Zn/Coppr/Lutein/Zeaxan [Preservision Areds 2 Softgel] 1 each PO BID [History] Hx Tetanus, Diphtheria Vaccination/Date Given: No Hx Influenza Vaccination/Date Given: Yes Hx Pneumococcal Vaccination/Date Given: Yes Immunizations Up to Date: Yes - Review of Systems Constitutional: No Symptoms Eyes: No Symptoms Ears, Nose, & Throat: No Symptoms Respiratory: No Symptoms Cardiac: No Symptoms Abdominal/Gastrointestinal: No Symptoms Genitourinary Symptoms: No Symptoms Musculoskeletal: Fall, Injury, Joint Pain, Joint Swelling Skin: No Symptoms Neurological: No Symptoms Psychological: No Symptoms Endocrine: No Symptoms Hematologic/Lymphatic: No Symptoms Immunological/Allergic: No Symptoms All Other Systems: Reviewed and Negative - Past Medical History Pertinent Past Medical History: Yes Neurological History: No Pertinent History ENT History: No Pertinent History Cardiac History: High Cholesterol, Hypertension Endocrine Medical History: Diabetes Type II, Hypothyroidism Musculoskeletal History: No Pertinent History GI Medical History: No Pertinent History History: No Pertinent History Psycho-Social History: No Pertinent History Female Reproductive Disorders: No Pertinent History Other Medical History: factor 5 - Past Surgical History Past Surgical History: Yes Neuro Surgical History: No Pertinent History Cardiac: No Pertinent History Respiratory: No Pertinent History Gastrointestinal: No Pertinent History Genitourinary: No Pertinent History Musculoskeletal: No Pertinent History Female Surgical History: Hysterectomy Other Surgical History: bladder surgery, skin ca removed - Social History Smoking Status: Never smoker Exposure to second hand smoke: No Drug Use: none Patient Lives Alone: Yes - Nursing Vital Signs Nursing Vital Signs: Initial Vital Signs Temperature 98.8 F 07/08/18 17:46 Pulse Rate 73 07/08/18 17:46 Respiratory Rate 20 07/08/18 17:46 Blood Pressure 156/73 07/08/18 17:46 O2 Sat by Pulse Oximetry 94 L 07/08/18 17:46 Pain Scale Pain Intensity 6 - Poplar Coma Score Best Eye Response (Poplar): (4) open spontaneously Best Verbal Response (Marva): (5) oriented Best Motor Response (Marva): (6) obeys commands Marva Total: 15 - Physical Exam General Appearance: mild distress, alert, anxiety Head Injury: no evidence of injury, No active bleeding, No Pacheco's Sign, No contusions, No raccoon eyes, No tenderness Eye Exam: PERRL/EOMI, eyes nml inspection ENT Exam: airway nml, nml ext.inspection, No evidence of ENT injury Neck Exam: supple, trachea midline, full range of motion, normal alignment Respiratory/Chest Exam: normal breath sounds, No chest tenderness, No respiratory distress Cardiovascular Exam: normal heart sounds, regular rate/rhythm Gastrointestinal Exam: soft, normal bowel sounds, No tenderness Rectal Exam: not done Back Exam: normal inspection, normal range of motion, No CVA tenderness, No vertebral tenderness Extremity Exam: swelling (right wrist), tenderness (right wrist) Neurologic Exam: alert, oriented x 3, cooperative, 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 07/08/18 18:56 pt only wants plain tylenol. will send home a percocet rx in case she requires stronger. Counseled pt/family regarding: diagnosis, need for follow-up, rad results - Departure Departure Disposition: Home Clinical Impression: Fracture of distal radius and ulna Condition: Stable Critical Care Time: No Referrals: CARYN LITTLE MD [Primary Care Provider] - Additional Instructions: ice pack to area 3 times daily for 2 days. follow up with orthopedic surgeon of choice tomorrow morning for further management Prescriptions: Oxycodone HCl/Acetaminophen [Percocet 5-325 mg Tablet] 1 each PO Q6H PRN PRN # 12 tablet MDD 4 PRN Reason: Pain
[2018-07-08] MEDS ORDERED: PERCOCET TABLET 5/325MG PO STA (18:53)
[2018-07-08] MEDS ORDERED: TYLENOL EXTRA STRENGTH 500 MG PO STA (18:57)
[2018-07-08] MEDS ORDERED: TYLENOL EXTRA STRENGTH 500 MG ONE (19:16)
[2018-07-08 19:43] VITALS: BP 178/74; PULSE 67; O2SAT 93
--- NOTE | 2018-07-09 09:04 | XRAY ---
Indication: Pain following fall. Comparison: None 3 views of the right wrist demonstrates osteopenia with minimally displaced acute comminuted fractures involving the distal radius and ulna with intra-articular extension and soft tissue swelling. Incidental mild degenerative changes base of 1st metacarpal. Remaining wrist unremarkable.
== END 2018-07-08 19:41 | disposition home or self-care (01) ==
LOC: ED 17:32
DX: S52.501A Unspecified fracture of the lower end of right radius, initial encounter for closed fracture (principal); S52.601A Unspecified fracture of lower end of right ulna, initial encounter for closed fracture; W18.09XA Striking against other object with subsequent fall, initial encounter; M25.531 Pain in right wrist; I10 Essential (primary) hypertension; E03.9 Hypothyroidism, unspecified; E11.9 Type 2 diabetes mellitus without complications; Z79.4 Long term (current) use of insulin; Z79.899 Other long term (current) drug therapy
CPT/HCPCS: 73110; 99284; A9270-GY

== ENCOUNTER 2018-10-02 17:38 | Emergency (ER) | payer MEDICARE ==
[2018-10-02] MEDS ORDERED: Sodium Chloride 0.9% 1000 ML 1,000 ML IV STA (17:54)
[2018-10-02] MEDS ORDERED: TYLENOL EXTRA STRENGTH 500 MG PO STA (17:55)
[2018-10-02] MEDS ORDERED: Sodium Chloride 0.9% 1000 ML 1,000 ML ONE (17:59)
[2018-10-02] MEDS ORDERED: TYLENOL EXTRA STRENGTH 500 MG ONE (17:59)
[2018-10-02 18:18] VITALS: BP 146/73
--- NOTE | 2018-10-02 18:20 | ERPHSYRPT ---
- History of Present Illness Time Seen by Provider: 10/02/18 18:17 Source: patient, family Exam Limitations: no limitations Physician History: 82-year-old female with significant past medical history of hypertension, started having fever with chills for last 2 days associated with cough. She states that she is running around 102 fever. She is also complaining of generalized weakness. 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 Associated Symptoms: cough, muscle aches Allergies/Adverse Reactions: clonidine Allergy (Verified 10/02/18 17:55) dipyridamole [From Aggrenox] Allergy (Verified 10/02/18 17:55) Home Medications: Amlodipine Besylate 5 mg PO BID 06/28/17 [History] Aspirin 81 gm Chew [Baby Aspirin 81 mg Chew] 81 mg PO HS 06/28/17 [History ] Calcium Carbonate/Vitamin D3 [Calcium 600 + Vit D 400 Tablet] 1 each PO BID [History] Cholecalciferol (Vitamin D3) [Vitamin D] 400 unit PO LUNCH 06/28/17 [ History] HydrALAzine HCL 25 MG TAB [Apresoline 25 MG TABLET] 50 mg PO TID 06/28/17 [History] Krill Oil/[place]-3/Dha/Epa [[place]-3 Krill Oil Softgel] 1 each PO LUNCH 06/28/17 [ History] Levothyroxine Sodium 112 Mcg [Synthroid 112 Mcg] 112 mcg PO DAILY 06/28/17 [History] Losartan Potassium 50 mg PO BID 06/28/17 [History] Metformin HCl Xr 500 mg [Glucophage XR 500 MG] 500 mg PO LUNCH 06/28/17 [ History] Metoprolol Tartrate 25 mg PO BID 06/28/17 [History] Multivitamins,Therapeutic Tab* [Theragran Multivitamin] 1 tab PO DAILY [History] Rosuvastatin Calcium 10 mg PO HS 06/28/17 [History] Vit C/E/Zn/Coppr/Lutein/Zeaxan [Preservision Areds 2 Softgel] 1 each PO BID [History] Hx Tetanus, Diphtheria Vaccination/Date Given: No Hx Influenza Vaccination/Date Given: Yes Hx Pneumococcal Vaccination/Date Given: Yes - Review of Systems Constitutional: Fever, Chills, Fatigue, Malaise, Weakness Eyes: No Symptoms Ears, Nose, & Throat: No Symptoms Respiratory: Cough, No Dyspnea Cardiac: No Chest Pain, No Edema, No Syncope Abdominal/Gastrointestinal: No Abdominal Pain, No Nausea, No Vomiting, No Diarrhea Genitourinary Symptoms: No Dysuria Musculoskeletal: No Back Pain, No Neck Pain Skin: No Rash Neurological: No Dizziness, No Focal Weakness, No Sensory Changes Psychological: No Symptoms Endocrine: No Symptoms All Other Systems: Reviewed and Negative - Past Medical History Pertinent Past Medical History: Yes Neurological History: No Pertinent History ENT History: No Pertinent History Cardiac History: High Cholesterol, Hypertension, Other Respiratory History: No Pertinent History Endocrine Medical History: Other Musculoskeletal History: Fractures, Osteoporosis GI Medical History: No Pertinent History History: No Pertinent History Psycho-Social History: No Pertinent History Female Reproductive Disorders: No Pertinent History Other Medical History: hx of thyroid function abnormality (takes prescription) - Past Surgical History Past Surgical History: Yes Neuro Surgical History: No Pertinent History Cardiac: No Pertinent History Respiratory: No Pertinent History Gastrointestinal: No Pertinent History Genitourinary: No Pertinent History Musculoskeletal: No Pertinent History Female Surgical History: Hysterectomy Other Surgical History: bladder surgery, skin ca removed - Social History Smoking Status: Never smoker Exposure to second hand smoke: No Drug Use: none Patient Lives Alone: Yes - Nursing Vital Signs Nursing Vital Signs: Initial Vital Signs Temperature 102.2 F 10/02/18 17:46 Pulse Rate 98 H 10/02/18 17:46 Respiratory Rate 24 10/02/18 17:46 Blood Pressure 146/73 10/02/18 17:46 O2 Sat by Pulse Oximetry 88 L 10/02/18 17:46 Pain Scale Pain Intensity 5 - Physical Exam General Appearance: mild distress, alert Eye Exam: PERRL/EOMI ENT Exam: normal ENT inspection, No pharyngeal erythema, No tonsillar exudate Neck Exam: supple, full range of motion, No meningismus Respiratory Exam: no respiratory distress, decreased air movement, crackles/ rales, rhonchi, wheezing Cardiovascular/Chest Exam: normal heart sounds, regular rate/rhythm, No murmur, No edema Gastrointestinal/Abdominal Exam: soft, non tender, no distention Extremity Exam: non-tender, normal range of motion, normal inspection, normal capillary refill Neurologic Exam: alert, oriented x 3, cooperative, 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 nml as tested, normal mood/affect, sensation nml, No motor deficits Skin Exam: normal color, warm, dry, No rash - Course Nursing assessment & vital signs reviewed: Yes EKG Interpreted by Me: Sinus Rhythm - Radiology Exams Chest X-ray Interpretation: Reviewed by me Ordered Tests: Active Orders 24 hr Category Date Time Status EKG-ER Only STAT Care 10/02/18 17:54 Active Oxygen-ED Only Nasal Cannula 2 lpm Care 10/02/18 17:54 Active CHEST 2 VIEWS (PA AND LAT) Stat Exams 10/02/18 17:54 Ordered BLOOD CULTURE Stat Lab 10/02/18 17:54 Ordered CBC W DIFF Stat Lab 10/02/18 18:25 Completed CMP Stat Lab 10/02/18 18:25 Received CULTURE,URINE Stat Lab 10/02/18 18:25 Received Lactic Acid Stat Lab 10/02/18 18:22 Completed UA W/RFX UR CULTURE Stat Lab 10/02/18 18:25 Completed Medication Summary Generic Name Dose Route Start Last Admin Trade Name Freq PRN Reason Stop Dose Admin Sodium Chloride 1,000 mls @ 999 mls/hr 10/02/18 17:54 10/02/18 18:00 Sodium Chloride 0.9% 1000 Ml IV 10/02/18 18:54 999 mls/hr .Q1H1M STA Administration Ceftriaxone Sodium/Dextrose 1 g in 50 mls @ 100 mls/hr 10/02/18 18:45 Rocephin 1 Gm-D5w 50 Ml Bag IV 10/02/18 19:14 STAT ONE Discontinued Medications Generic Name Dose Route Start Last Admin Trade Name Freq PRN Reason Stop Dose Admin Acetaminophen 1,000 mg 10/02/18 17:55 10/02/18 18:00 Tylenol Extra Strength 500 Mg PO 10/02/18 17:56 1,000 mg STAT STA Administration Acetaminophen Confirm 10/02/18 17:59 Tylenol Extra Strength 500 Mg Administered 10/02/18 18:00 Dose 1,000 mg .ROUTE .STK-MED ONE Sodium Chloride Confirm 10/02/18 17:59 Sodium Chloride 0.9% 1000 Ml Administered 10/02/18 18:00 Dose 1,000 mls @ ud .ROUTE .STK-MED ONE Ceftriaxone Sodium/Dextrose 2 g in 50 mls @ 100 mls/hr 10/02/18 18:43 18:45 Rocephin 2 Gm-D5w 50ml Bag IV 10/02/18 19:12 Not Given STAT STA Lab/Rad Data: Laboratory Result Diagrams 10/02/18 18:25 Laboratory Results 10/02/18 10/02/18 10/02/18 Range/Units 18:25 18:25 18:22 WBC 15.8 H (4.0-10.5) K/mm3 RBC 4.34 (4.1-5.4) M/mm3 Hgb 12.5 (12.0-16.0) gm/dl Hct 38.8 (35-47) % MCV 89.4 (78-100) fl MCH 28.8 (26-32) pg MCHC 32.2 (32-36) g/dl RDW 15.3 H (11.5-14.0) % Plt Count 201 (150-450) K/mm3 MPV 10.5 H (6-9.5) fl Gran % 80.3 H (36.0-66.0) % Eos # (Auto) 0.09 (0-0.5) Absolute Lymphs (auto) 1.36 (1.0-4.6) Absolute Monos (auto) 1.65 H (0.0-1.3) Lymphocytes % 8.6 L (24.0-44.0) % Monocytes % 10.4 (0.0-12.0) % Eosinophils % 0.6 (0.00-5.0) % Basophils % 0.1 (0.0-0.4) % Absolute Granulocytes 12.68 H (1.4-6.9) Basophils # 0.01 (0-0.4) Lactic Acid 1.2 (0.4-2.0) Urine Color BILLY (YELLOW) Urine Appearance CLOUDY (CLEAR) Urine pH 5.0 (5-6) Ur Specific [place] 1.018 (1.005-1.025) Urine Protein 100 (Negative) Urine Ketones TRACE (NEGATIVE) Urine Blood NEGATIVE (0-5) Campos/ul Urine Nitrite NEGATIVE (NEGATIVE) Urine Bilirubin NEGATIVE (NEGATIVE) Urine Urobilinogen 2 (0-1) mg/dL Ur Leukocyte Esterase LARGE (NEGATIVE) Urine WBC (Auto) >100 (0-5) /HPF Urine RBC (Auto) 3-5 (0-2) /HPF U Hyaline Cast (Auto) 0-2 (0-2) /LPF U Epithel Cells (Auto) RARE (FEW) /HPF Urine Bacteria (Auto) RARE (NEGATIVE) /HPF Urine Mucus (Auto) SLIGHT (NEGATIVE) /HPF Urine Culture Reflexed YES (NO) Urine Glucose NEGATIVE (NEGATIVE) mg/dL - Progress Progress: improved Counseled pt/family regarding: lab results, diagnosis, need for follow-up, rad results - Departure Departure Disposition: Home Clinical Impression: Pneumonia Qualifiers: Pneumonia type: due to unspecified organism Laterality: right Lung location: lower lobe of lung Qualified Code(s): J18.1 - Lobar pneumonia, unspecified organism UTI (urinary tract infection) Qualifiers: Urinary tract infection type: site unspecified Hematuria presence: without hematuria Qualified Code(s): N39.0 - Urinary tract infection, site not specified Condition: Stable Critical Care Time: Yes Critical Care Time(excluding separately billable procedures): 30-74 minutes Referrals: CARYN LITTLE MD [Primary Care Provider] - Instructions: Pneumonia, Adult (DC), Urinary Tract Infection, Adult (DC) Additional Instructions: Discharge/Care Plan YESENIA AGRAWAL was seen on 10/02/18 in the Emergency Room. The patient was counseled regarding Diagnosis,Lab results, Imaging studies, need for follow up and when to return to the Emergency Room. Prescriptions given: Discharge Note I have spoken with the patient and/or caregivers. I have explained the patient' s condition, diagnosis and treatment plan based on the information available to me at this time. I have answered the patient's and/or caregiver's questions and addressed any concerns. The patient and/or caregivers have as good understanding of the patient's diagnosis, condition and treatment plan as can be expected at this point. The vital signs have been stable. The patient's condition is stable and appropriate for discharge from the emergency department. The patient will pursue further outpatient evaluation with the primary care physician or other designated or consulting physician as outlined in the discharge instructions. The patient and/or caregivers are agreeable to this plan of care and follow-up instructions have been explained in detail. The patient and/or caregivers have received these instruction. The patient/and or caregivers are aware that any significant change in condition or worsening of symptoms should prompt an immediate return to this or the closest emergency department or call 911. Prescriptions: Levofloxacin [Levaquin] 250 mg PO DAILY #7 tablet
[2018-10-02 18:26] LABS: BASOPHIL % 0.1 % (0.0-0.4); Basophil (Absolute #) 0.01 (0-0.4); Eosinophil % 0.6 % (0.00-5.0); Eosinophil (Absolute #) 0.09 (0-0.5); Granulocyte Absolute (ANC) 12.68 (1.4-6.9); Granulocytes % 80.3 % (36.0-66.0); Hematocrit 38.8 % (35-47); Hemoglobin 12.5 gm/dl (12.0-16.0); Lymphocyte (Absolute #) 1.36 (1.0-4.6); Lymphocytes % 8.6 % (24.0-44.0); Mean Cell Volume 89.4 fl (78-100); Mean Corpuscular Hemoglobin 28.8 pg (26-32); Mean Corpuscular Hgb Concent. 32.2 g/dl (32-36); Mean Platelet Volume 10.5 fl (6-9.5); Monocytes % 10.4 % (0.0-12.0); Platelet Count 201 K/mm3 (150-450); Red Blood Count 4.34 M/mm3 (4.1-5.4); Red Cell Distribution Width 15.3 % (11.5-14.0); White Blood Count 15.8 K/mm3 (4.0-10.5)
[2018-10-02 18:32] LABS: Appearance CLOUDY (CLEAR); Bacteria RARE /HPF (NEGATIVE); Bilirubin NEGATIVE (NEGATIVE); Blood NEGATIVE Ery/ul (0-5); Epithelial Cells RARE /HPF (FEW); Glucose NEGATIVE (NEGATIVE); Hyaline Casts 0-2 /LPF (0-2); Ketones TRACE (NEGATIVE); Leukocyte Esterase LARGE (NEGATIVE); Mucus SLIGHT /HPF (NEGATIVE); Nitrite NEGATIVE (NEGATIVE); Protein,Urine Dip 100 (Negative); Specific Gravity 1.018 (1.005-1.025); Urobilinogen 2 mg/dL (0-1); WBC >100 /HPF (0-5)
[2018-10-02 18:37] LABS: ALBUMIN 4.3 g/dL (3.5-5.0); ANION GAP 15.9 MEQ/L (5-15); BILIRUBIN,TOTAL 0.8 mg/dL (0.2-1.3); Calcium 9.5 mg/dL (8.4-10.2); Creatinine 1 1.22 mg/dL (0.52-1.04); Potassium 4.2 mmol/L (3.5-5.1); Total Protein 7.8 g/dL (6.3-8.2)
[2018-10-02] MEDS ORDERED: ROCEPHIN 2 Gm-D5w 50ML BAG** 2 G/50 ML IVPB IV STA (18:43)
[2018-10-02 18:44] VITALS: PULSE 84; O2SAT 93
[2018-10-02] MEDS ORDERED: ROCEPHIN 1 Gm-D5w 50 ml Bag** 1 G/50 ML IVPB IV ONE (18:45)
--- NOTE | 2018-10-02 22:46 | XRAY ---
Indication: Fever and chills. Comparison: May 21, 2018. PA/lateral chest demonstrates new subtle right infrahilar infiltrate versus atelectasis. Stable COPD, scattered fibrosis/scarring, and large hiatal hernia. Heart is not enlarged. Bony thorax intact again with osteopenia, degenerative changes, and scoliosis.
[2018-10-02 23:51] LABS: Slide Review 1 YES
== END 2018-10-02 19:45 | disposition home or self-care (01) ==
LOC: ED 17:38
DX: J18.1 Lobar pneumonia, unspecified organism (principal); N39.0 Urinary tract infection, site not specified; I10 Essential (primary) hypertension; E78.00 Pure hypercholesterolemia, unspecified; Z79.899 Other long term (current) drug therapy
CPT/HCPCS: 36000; 36415; 71046; 80053; 81001; 83605; 85025; 87040; 87077; 87086; 87186; 93005; 96360; 96365; 96374; 96375; 99284; J0696; A9270-GY

== ENCOUNTER 2020-01-19 11:49 | Emergency (ER) | payer MEDICARE ==
--- NOTE | 2020-01-19 11:52 | ERPHSYRPT ---
- History of Present Illness Time Seen by Provider: 01/19/20 11:55 Source: patient Physician History: Patient is an 84-year-old female presents to our ED via EMS for evaluation of facial injury secondary to a fall. Patient arrived non-boarded. Patient was non-collared. Patient has abrasions to her nose. Patient has a nosebleed as well. Patient states she was ambulating when she missed stepped on a curb and fell forward onto her face. No loss of consciousness. The fall was not associated with any neuro or cardiovascular symptomology. Patient complains of pain to the bridge of her nose, her neck as well as left shoulder. No other injuries reported. We applied a cervical collar upon patient arrival. Patient denies chest pain or shortness of breath. No numbness tingling or weakness. 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 Patient voices no other complaints or concerns at this time. Occurred: just prior to arrival Severity: mild Head Injury Location: frontal Method of Injury: fell Loss of Consciousness: no loss of consciousness Associated Symptoms: denies symptoms, No nausea, No vomiting, No shortness of breath, No diaphoresis, No cough, No chills, No chest pain, No fever, No head aches, No loss of appetite, No malaise, No rash, No syncope, No seizure, No weakness Allergies/Adverse Reactions: clonidine Allergy (Verified 01/19/20 12:06) dipyridamole [From Aggrenox] Allergy (Verified 01/19/20 12:06) Home Medications: Amlodipine Besylate 5 mg PO BID 06/28/17 [History] Aspirin 81 gm Chew [Baby Aspirin 81 mg Chew] 81 mg PO HS 06/28/17 [History] Calcium Carbonate/Vitamin D3 [Calcium 600 + Vit D 400 Tablet] 1 each PO BID 06/28/17 [History] Cholecalciferol (Vitamin D3) [Vitamin D] 400 unit PO LUNCH 06/28/17 [History] HydrALAzine HCL 25 MG TAB [Apresoline 25 MG TABLET] 50 mg PO TID 06/28/17 [History] Levothyroxine Sodium 112 Mcg [Synthroid 112 Mcg] 112 mcg PO DAILY 06/28/17 [History] Losartan Potassium 50 mg PO BID 06/28/17 [History] Metformin HCl Xr 500 mg [Glucophage XR 500 MG] 500 mg PO LUNCH 06/28/17 [History] Metoprolol Tartrate 25 mg PO BID 06/28/17 [History] Multivitamins,Therapeutic Tab* [Theragran Multivitamin] 1 tab PO DAILY 06/28/17 [History] Rosuvastatin Calcium 10 mg PO HS 06/28/17 [History] Vit C/E/Zn/Coppr/Lutein/Zeaxan [Preservision Areds 2 Softgel] 1 each PO BID 06/28/17 [History] Furosemide 20 mg [Lasix 20 mg] 20 mg PO TID 10/02/18 [History] Potassium Chloride 10 Meq Tab* [Klor Con 10 MEQ] 10 meq PO TID 10/02/18 [History] Ubidecarenone/[place]-3/Vit E [Co Q-10-Vit E-Fish Oil Sfgl] 1 each PO DAILY 10/02/18 [History] Hx Tetanus, Diphtheria Vaccination/Date Given: No Hx Influenza Vaccination/Date Given: Yes Hx Pneumococcal Vaccination/Date Given: Yes - Review of Systems Constitutional: No Symptoms, No Fever, No Chills Eyes: No Symptoms Ears, Nose, & Throat: No Symptoms Respiratory: No Symptoms, No Cough, No Dyspnea Cardiac: No Symptoms, No Chest Pain, No Edema, No Syncope Abdominal/Gastrointestinal: No Symptoms, No Abdominal Pain, No Nausea, No Vomiting, No Diarrhea Genitourinary Symptoms: No Symptoms, No Dysuria Musculoskeletal: No Symptoms, No Back Pain, No Neck Pain Skin: No Symptoms, No Rash Neurological: No Symptoms, No Dizziness, No Focal Weakness, No Sensory Changes Psychological: No Symptoms Endocrine: No Symptoms Hematologic/Lymphatic: No Symptoms Immunological/Allergic: No Symptoms All Other Systems: Reviewed and Negative - Past Medical History Pertinent Past Medical History: Yes Neurological History: No Pertinent History ENT History: No Pertinent History Cardiac History: High Cholesterol, Hypertension, Other Respiratory History: No Pertinent History Endocrine Medical History: Other Musculoskeletal History: Fractures, Osteoporosis GI Medical History: No Pertinent History History: No Pertinent History Psycho-Social History: No Pertinent History Female Reproductive Disorders: No Pertinent History Other Medical History: hx of thyroid function abnormality (takes prescription) - Past Surgical History Past Surgical History: Yes Neuro Surgical History: No Pertinent History Cardiac: No Pertinent History Respiratory: No Pertinent History Gastrointestinal: No Pertinent History Genitourinary: No Pertinent History Musculoskeletal: No Pertinent History Female Surgical History: Hysterectomy Other Surgical History: bladder surgery, skin ca removed - Social History Smoking Status: Never smoker Exposure to second hand smoke: No Drug Use: none Patient Lives Alone: Yes - Nursing Vital Signs Nursing Vital Signs: Initial Vital Signs Temperature 97.4 F 01/19/20 11:51 Pulse Rate 68 01/19/20 11:51 Blood Pressure 181/80 01/19/20 11:51 O2 Sat by Pulse Oximetry 93 L 01/19/20 11:51 Pain Scale Pain Intensity 7 - [place] Coma Score Best Eye Response (Marva): (4) open spontaneously Best Verbal Response (Marva): (5) oriented Best Motor Response (Marva): (6) obeys commands [place] Total: 15 - Physical Exam General Appearance: no apparent distress, alert Eye Exam: bilateral eye: normal inspection, PERRL, EOMI ENT Exam: airway nml, evidence of ENT injury, clotted nasal blood, other (Facial swelling particularly around her left eye.), No dental injury, No clear fluid (ears), No clear fluid (nose), No midface instability (Patient bleeding from nose. 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 Exam: normal hearing, normal speech, PERRL, No abnormal eye position, No abnormal gag reflex, No abnormal pupil position, No abnormal speech, No facial asymmetry Motor/Sensory Exam: no motor deficit, no sensory deficit, CN II-XII intact Skin Exam: normal color, warm, dry, No rash Lymphatic Exam: No adenopathy SpO2 Interpretation: normal SpO2: 98 O2 Delivery: Room Air - Course Nursing assessment & vital signs reviewed: Yes - Radiology Exams Shoulder X-ray Interpretation: Teleradiologist Report (No fracture dislocation left shoulder.) - CT Exams Cervical Spine CT Interpretation: Tele-radiologist Report (C4 transverse process fracture through the foramen, foraminal stenosis osteopenia degenerative joint disease.) Head CT Interpretation: Tele-radiologist Report (Left frontal scalp hematoma) Ordered Tests: Active Orders 24 hr Category Date Time Status CERVICAL SPINE WO CONTRAST [CT] Stat Exams 01/19/20 11:56 Completed FACIAL BONES WO CONTRAST [CT] Stat Exams 01/19/20 11:52 Completed HEAD WITHOUT CONTRAST [CT] Stat Exams 01/19/20 11:52 Completed SHOULDER Stat Exams 01/19/20 11:53 Completed CBC W DIFF Stat Lab 01/19/20 15:34 Completed CMP Stat Lab 01/19/20 15:34 Completed UA W/RFX UR CULTURE Stat Lab 01/19/20 15:38 Ordered Medication Summary Discontinued Medications Generic Name Dose Route Start Last Admin Trade Name Freq PRN Reason Stop Dose Admin Morphine Sulfate 4 mg 01/19/20 15:16 01/19/20 15:20 Morphine Sulfate 4 Mg Inj IV 01/19/20 15:17 4 mg STAT ONE Administration Morphine Sulfate Confirm 01/19/20 15:19 Morphine Sulfate 4 Mg Inj Administered 01/19/20 15:20 Dose 4 mg .ROUTE .STK-MED ONE Ondansetron HCl Confirm 01/19/20 15:22 Zofran 4 Mg/2 Ml Vial Administered 01/19/20 15:23 Dose 4 mg .ROUTE .STK-MED ONE Ondansetron HCl 4 mg 01/19/20 15:34 01/19/20 15:37 Zofran 4 Mg/2 Ml Vial IV 01/19/20 15:35 4 mg STAT ONE Administration Lab/Rad Data: Laboratory Result Diagrams 01/19/20 15:34 01/19/20 15:34 Laboratory Results 01/19/20 01/19/20 Range/Units 15:34 15:34 WBC 10.9 H (4.0-10.5) K/mm3 RBC 4.57 (4.1-5.4) M/mm3 Hgb 13.0 (12.0-16.0) gm/dl Hct 40.4 (35-47) % MCV 88.4 (78-100) fl MCH 28.4 (26-32) pg MCHC 32.2 (32-36) g/dl RDW 16.2 H (11.5-14.0) % Plt Count 230 (150-450) K/mm3 MPV 10.5 (7.5-11.0) fl Gran % 80.4 H (36.0-66.0) % Eos # (Auto) 0.06 (0-0.5) Absolute Lymphs (auto) 1.31 (1.0-4.6) Absolute Monos (auto) 0.76 (0.0-1.3) Lymphocytes % 12.0 L (24.0-44.0) % Monocytes % 7.0 (0.0-12.0) % Eosinophils % 0.5 (0.00-5.0) % Basophils % 0.1 (0.0-0.4) % Absolute Granulocytes 8.78 H (1.4-6.9) Basophils # 0.01 (0-0.4) Sodium 138 (137-145) mmol/L Potassium 4.0 (3.5-5.1) mmol/L Chloride 102 (98-107) mmol/L Carbon Dioxide 29 (22-30) mmol/L Anion Gap 11.2 (5-15) MEQ/L BUN 27 H (7-17) mg/dL Creatinine 1.02 (0.52-1.04) mg/dL Estimated GFR 54.6 ML/MIN Glucose 110 H (74-106) mg/dL Calcium 10.0 (8.4-10.2) mg/dL Total Bilirubin 0.60 (0.2-1.3) mg/dL AST 42 H (14-36) U/L ALT 19 (0-35) U/L Alkaline Phosphatase 61 (38-126) U/L Serum Total Protein 8.0 (6.3-8.2) g/dL Albumin 4.7 (3.5-5.0) g/dL - Progress Progress: improved Progress Note: 01/19/20 16:15 Patient reassessed. Pain improved. Patient has a transverse process fracture and nasal bone fracture, nasal septum fracture inferior orbital wall fracture no entrapment maxillary wall fracture. [facility] [place] [facility] further evaluation and treatment. We attempted [facility] however they do not have the services available to accommodate our patient. Case discussed with Dr. Fernandez of the trauma service at [facility] who accepts ED to ED transfer. Plan of care discussed with patient. She agrees with transfer for further evaluation and treatment. Discussed with : Other Counseled pt/family regarding: lab results, diagnosis, rad results - Departure Departure Disposition: Extended Care Facility Clinical Impression: Cervical transverse process fracture, Foraminal stenosis of cervical region, Osteopenia, Degenerative arthritis, Nasal bone fracture, Orbital floor fracture, Nasal septum fracture, Maxillary fracture, Fall Condition: Stable Critical Care Time: No Referrals: CARYN LITTLE MD [Primary Care Provider] -
--- NOTE | 2020-01-19 12:48 | XRAY ---
Indication: Pain following fall. Multiple contiguous axial images obtained through the head without contrast. Comparison: May 21, 2018. Again age-appropriate global atrophy. No acute intracranial hemorrhage, abnormal extra-axial fluid collection, or mass effect. Fourth ventricle is midline without hydrocephalus. Tompkins-white matter differentiation preserved. New small left frontal scalp hematoma. Bony calvarium intact. CT facial bones and CT cervical spine reported separately. Impression: New left frontal scalp hematoma. No underlying fracture or acute intracranial abnormalities.
--- NOTE | 2020-01-19 12:55 | XRAY ---
Indication: Pain following fall. Multiple contiguous axial images obtained through the cervical spine. Sagittal and coronal reformatted images obtained. Comparison: None. Age-related osteopenia. Axial images demonstrates nondisplaced fracture involving the right transverse process of C4 including the transverse foramen. No other acute fracture, suspicious bony lesions, or spinal canal stenosis. Left C3-C4 foraminal stenosis due to uncovertebral spurring. Mild/moderate multilevel bilateral degenerative facet hypertrophy. Sagittal and coronal reformatted images demonstrates normal alignment with vertebral body heights/disc spaces maintained. No acute compression fracture, subluxation, or jumped facet. Normal appearing craniocervical junction. Visualized noncontrasted soft tissues demonstrates mild bilateral carotid calcifications and mild biapical pleural-parenchymal fibrosis/scarring. CT facial bones and CT head reported separately. Impression: 1. Nondisplaced fracture right treasures process of C4 including the transverse foramen. 2. Osteopenia and multilevel degenerative changes.
--- NOTE | 2020-01-19 13:13 | XRAY ---
Indication: Pain following fall. Comparison: None 3 view left shoulder demonstrates osteopenia and mild degenerative changes throughout the spine. No other bony, articular, or soft tissue abnormalities.
--- NOTE | 2020-01-19 13:17 | XRAY ---
Indication: Pain following fall. Multiple contiguous axial images obtained through the facial bones. Sagittal and coronal reformatted images obtained. Comparison: None. There are multiple bilateral dental amalgams producing beam artifact. Osseous structures demineralized consistent with patient's age. Nondisplaced bilateral nasal bone fractures with overlying soft tissue swelling. Left nasal bone fracture extends to involve the anterior inferior left orbit with tiny air bubbles in the floor of the left orbit. No entrapment of the extraocular muscles. Additional nondisplaced fractures involving the anterior nasal septum and anterior chaocn of both maxillary sinuses. Mild left facial soft tissue swelling with tiny bilateral subcutaneous air bubbles. Opacification of both nasal passages/nasopharynx and fluid leveling in both maxillary/left sphenoid sinuses presumed blood. CT cervical spine and CT head reported separately. Impression: 1. Nondisplaced facial bone fractures of the nasal bone, nasal septum, left orbit, and anterior chacon of both maxillary sinuses with overlying soft tissue swelling and subcutaneous emphysema. 2. Subsequent blood in the paranasal sinuses, nasal passages, and nasopharynx.
[2020-01-19 15:04] VITALS: BP 169/72; PULSE 82
[2020-01-19] MEDS ORDERED: MORPHINE SULFATE 4 MG INJ IV ONE (15:16)
[2020-01-19] MEDS ORDERED: MORPHINE SULFATE 4 MG INJ ONE (15:19)
[2020-01-19] MEDS ORDERED: Zofran 4 MG/2 ML VIAL ONE (15:22)
[2020-01-19] MEDS ORDERED: Zofran 4 MG/2 ML VIAL IV ONE (15:34)
[2020-01-19 15:46] LABS: Absolute Neutrophil Ct (ANC) 8.78 (1.4-6.9); BASOPHIL % 0.1 % (0.0-0.4); Basophil (Absolute #) 0.01 (0-0.4); Eosinophil % 0.5 % (0.00-5.0); Eosinophil (Absolute #) 0.06 (0-0.5); Hematocrit 40.4 % (35-47); Lymphocyte (Absolute #) 1.31 (1.0-4.6); Mean Cell Volume 88.4 fl (78-100); Mean Corpuscular Hemoglobin 28.4 pg (26-32); Mean Corpuscular Hgb Concent. 32.2 g/dl (32-36); Mean Platelet Volume 10.5 fl (7.5-11.0); Monocyte (Absolute #) 0.76 (0.0-1.3); Neutrophil % 80.4 % (36.0-66.0); Platelet Count 230 K/mm3 (150-450); Red Blood Count 4.57 M/mm3 (4.1-5.4); Red Cell Distribution Width 16.2 % (11.5-14.0); White Blood Count 10.9 K/mm3 (4.0-10.5)
[2020-01-19 15:59] LABS: ALBUMIN 4.7 g/dL (3.5-5.0); ANION GAP 11.2 MEQ/L (5-15); BILIRUBIN,TOTAL 0.6 mg/dL (0.2-1.3); Creatinine 1 1.02 mg/dL (0.52-1.04); EST GLOMERULAR FILTRATION RATE 54.6 ML/MIN
[2020-01-19 16:20] VITALS: O2SAT 98
== END 2020-01-19 17:19 | disposition critical access hospital (66) ==
LOC: ED 11:49
DX: S12.9XXA Fracture of neck, unspecified, initial encounter (principal); M48.02 Spinal stenosis, cervical region; M85.80 Other specified disorders of bone density and structure, unspecified site; M19.90 Unspecified osteoarthritis, unspecified site; S02.2XXA Fracture of nasal bones, initial encounter for closed fracture; S02.30XA Fracture of orbital floor, unspecified side, initial encounter for closed fracture; S02.401A Maxillary fracture, unspecified side, initial encounter for closed fracture; S00.31XA Abrasion of nose, initial encounter; W19.XXXA Unspecified fall, initial encounter; Y93.89 Activity, other specified; Y92.480 Sidewalk as the place of occurrence of the external cause; Y99.8 Other external cause status; Z79.899 Other long term (current) drug therapy
CPT/HCPCS: 36000; 36415; 70450; 70486; 72125; 73030; 80053; 85025; 96374; 96375; 99285; J2270; J2405; L0120; L0172

== ENCOUNTER 2022-03-09 14:17 | Emergency (ER) | payer MEDICARE ==
--- NOTE | 2022-03-09 14:24 | ERPHSYRPT ---
- History of Present Illness Time Seen by Provider: 03/09/22 14:23 Source: patient, family Exam Limitations: no limitations Physician History: This is an 86-year-old white female patient who has chronic renal issues and sees Dr. Beltran for them. Patient has a history of hypothyroidism, hypertension, diabetes and hyperlipidemia. In the last 2 to 3 weeks she has noticed achiness in both lower extremities. Patient was taken off her osteoporosis medication approximately 5 weeks ago. Within a couple weeks she started having these symptoms. She is unsure if they are related. She has not suffered any falls or acute trauma. She also notices metallic tasting food and decreased appetite as well as increased fatigue. She has noticed some swelling in her ankles and she began taking her Lasix daily. 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 Patient denies chest pain. She denies shortness of breath. She has had no nausea vomiting or diarrhea. She has no abdominal pain. Method of Injury: other (No injury) Occurred: other (No injury) Quality: constant, aching (Bilateral lower extremity) Severity of Pain-Max: mild Severity of Pain-Current: mild Lower Extremities Pain: hip: bilateral, leg: bilateral, knee: bilateral, thigh: bilateral, foot: bilateral, ankle: bilateral Associated Symptoms: none Allergies/Adverse Reactions: clonidine Allergy (Verified 01/19/20 12:06) dipyridamole [From Aggrenox] Allergy (Verified 03/09/22 15:52) Home Medications: Amlodipine Besylate 5 mg PO BID 06/28/17 [History] Aspirin 81 gm Chew [Baby Aspirin 81 mg Chew] 81 mg PO HS 06/28/17 [History] HydrALAzine HCL 25 MG TAB [Apresoline 25 MG TABLET] 50 mg PO BID 06/28/17 [History] Levothyroxine Sodium 112 Mcg [Synthroid 112 Mcg] 125 mcg PO DAILY 06/28/17 [History] Losartan Potassium 50 mg PO BID 06/28/17 [History] Metoprolol Tartrate 25 mg PO BID 06/28/17 [History] Multivitamins,Therapeutic Tab* [Theragran Multivitamin] 1 tab PO DAILY 06/28/17 [History] Rosuvastatin Calcium 20 mg PO HS 06/28/17 [History] Vit C/E/Zn/Coppr/Lutein/Zeaxan [Preservision Areds 2 Softgel] 1 each PO BID 06/28/17 [History] Furosemide 20 mg [Lasix 20 mg] 20 mg PO UD PRN 10/02/18 [History] Potassium Chloride Tab* [Klor Con 10 MEQ] 10 meq PO 3XW 10/02/18 [History] Albuterol Sulfate [Albuterol Sulfate Hfa] 2 inh PO DAILY 03/09/22 [History] Tiotropium Henderson [Spiriva Handihaler] 1 cap IN DAILY 03/09/22 [History] Hx Tetanus, Diphtheria Vaccination/Date Given: No Hx Influenza Vaccination/Date Given: Yes Hx Pneumococcal Vaccination/Date Given: Yes Travel Risk - International Travel Have you traveled outside of the country in past 3 weeks: No - Coronavirus Screening Are you exhibiting any of the following symptoms?: No Close contact with a COVID-19 positive Pt in past 14-21 Days: No - Review of Systems Constitutional: Weakness Eyes: No Symptoms Ears, Nose, & Throat: No Symptoms Respiratory: No Symptoms Cardiac: No Symptoms Abdominal/Gastrointestinal: No Symptoms Genitourinary Symptoms: No Symptoms Musculoskeletal: Other (Bilateral lower extremity weakness and achiness) Skin: No Symptoms Neurological: No Symptoms Psychological: No Symptoms Endocrine: No Symptoms Hematologic/Lymphatic: No Symptoms Immunological/Allergic: No Symptoms All Other Systems: Reviewed and Negative - Past Medical History Pertinent Past Medical History: Yes Neurological History: No Pertinent History ENT History: No Pertinent History Cardiac History: High Cholesterol, Hypertension, Other Respiratory History: No Pertinent History Endocrine Medical History: Other Musculoskeletal History: Fractures, Osteoporosis GI Medical History: No Pertinent History History: No Pertinent History Psycho-Social History: No Pertinent History Female Reproductive Disorders: No Pertinent History Other Medical History: hx of thyroid function abnormality (takes prescription) - Past Surgical History Past Surgical History: Yes Neuro Surgical History: No Pertinent History Cardiac: No Pertinent History Respiratory: No Pertinent History Gastrointestinal: No Pertinent History Genitourinary: No Pertinent History Musculoskeletal: No Pertinent History Female Surgical History: Hysterectomy Other Surgical History: bladder surgery, skin ca removed - Social History Smoking Status: Never smoker Exposure to second hand smoke: No Drug Use: none Patient Lives Alone: Yes - Nursing Vital Signs Nursing Vital Signs: Initial Vital Signs Temperature 99.0 F 03/09/22 15:27 Pulse Rate 69 03/09/22 15:27 Blood Pressure 150/58 03/09/22 15:27 O2 Sat by Pulse Oximetry 95 03/09/22 15:27 Pain Scale Pain Intensity 0 - Physical Exam General Appearance: no apparent distress, alert, anxiety Eyes, Ears, Nose, Throat Exam: normal ENT inspection, moist mucous membranes Neck Exam: normal inspection, non-tender, supple, full range of motion Cardiovascular/Respiratory Exam: chest non-tender, no respiratory distress Gastrointestinal/Abdominal Exam: non-tender Back Exam: normal inspection, normal range of motion, No CVA tenderness, No vertebral tenderness Hips Exam: bilateral: normal inspection, normal range of motion, no evidence of injury, other (Achiness) Legs Exam: bilateral leg: normal inspection, normal range of motion, no evidence of injury, other (Achiness) Knees Exam: bilateral knee: normal inspection, normal range of motion, no evidence of injury, other (Achiness) Ankle Exam: bilateral ankle: normal inspection, normal range of motion, no evidence of injury, other (Achiness) Foot Exam: bilateral foot: normal inspection, normal range of motion, no evidence of injury, other (Achiness) Neuro/Tendon Exam: normal sensation, normal motor functions, normal tendon functions Mental Status Exam: alert, oriented x 3, cooperative Skin Exam: normal color, warm, dry SpO2 Interpretation: normal - Course Nursing assessment & vital signs reviewed: Yes Ordered Tests: Active Orders 24 hr Category Date Time Status IV Insertion STAT Care 03/09/22 16:23 Active IV Insertion STAT Care 03/09/22 16:24 Active VENOUS BILATERAL EXTREMITY [US] Stat Exams 03/09/22 18:55 Taken CBC W DIFF Stat Lab 03/09/22 17:30 Completed CMP Stat Lab 03/09/22 17:30 Completed D-DIMER QUANTITATIVE Stat Lab 03/09/22 17:30 Completed MAG [MAGNESIUM] Stat Lab 03/09/22 17:30 Completed TROPONIN Q4H Lab 03/09/22 18:01 Completed TROPONIN Q4H Lab 03/09/22 21:15 Ordered UA W/RFX CULTURE Stat Lab 03/09/22 17:12 Completed Medication Summary Discontinued Medications Generic Name Dose Route Start Last Admin Trade Name Freq PRN Reason Stop Dose Admin Sodium Chloride 500 mls @ 500 mls/hr 03/09/22 16:24 03/09/22 17:58 Sodium Chloride 0.9% 500 Ml IV 03/09/22 17:23 Infused .Q1H ONE Infusion Sodium Chloride Confirm 03/09/22 16:48 Sodium Chloride 0.9% 500 Ml Administered 03/09/22 16:49 Dose 500 mls @ ud IV .STK-MED ONE Lab/Rad Data: Laboratory Result Diagrams 03/09/22 17:30 03/09/22 17:30 Laboratory Results 03/09/22 03/09/22 03/09/22 Range/Units 18:01 17:30 17:30 WBC (4.0-10.5) x10^3/uL RBC (4.1-5.4) x10^6/uL Hgb (12.0-16.0) g/dL Hct (35-47) % MCV (78-100) fL MCH (26-32) pg MCHC (32-36) g/dL RDW (11.5-14.0) % Plt Count (150-450) x10^3/uL MPV (7.5-11.0) fL Gran % (36.0-66.0) % Immature Gran % (Auto) (0.00-0.4) % Nucleat RBC Rel Count (0.00-0.1) % Eos # (Auto) (0-0.5) x10^3/uL Immature Gran # (Auto) (0.00-0.03) x10^3u/L Absolute Lymphs (auto) (1.0-4.6) x10^3/uL Absolute Monos (auto) (0.0-1.3) x10^3/uL Absolute Nucleated RBC (0.00-0.01) x10^3u/L Lymphocytes % (24.0-44.0) % Monocytes % (0.0-12.0) % Eosinophils % (0.00-5.0) % Basophils % (0.0-0.4) % Absolute Granulocytes (1.4-6.9) x10^3/uL Basophils # (0-0.4) x10^3/uL D-Dimer 2.46 H* (0.0-0.50) mg/L Sodium 137 (137-145) mmol/L Potassium 4.8 (3.5-5.1) mmol/L Chloride 102 (98-107) mmol/L Carbon Dioxide 31 H (22-30) mmol/L Anion Gap 8.5 (5-15) MEQ/L BUN 27 H (7-17) mg/dL Creatinine 1.24 H (0.52-1.04) mg/dL Estimated GFR 43.4 ML/MIN Glucose 97 (74-106) mg/dL Calcium 8.9 (8.4-10.2) mg/dL Magnesium 2.1 (1.6-2.3) mg/dL Total Bilirubin 0.40 (0.2-1.3) mg/dL AST 38 H (14-36) U/L ALT 17 (0-35) U/L Alkaline Phosphatase 75 (38-126) U/L Troponin I < 0.012 (0.000-0.034) ng/mL Serum Total Protein 6.7 (6.3-8.2) g/dL Albumin 3.1 L (3.5-5.0) g/dL Urinalys Dipstick Clnc Urine Color (YELLOW) Urine Appearance (CLEAR) Urine pH (5-6) Ur Specific Alex (1.005-1.025) POC Urine Protein Conf (Negative) Urine Ketones (NEGATIVE) Urine Nitrite (NEGATIVE) Urine Bilirubin (NEGATIVE) Urine Urobilinogen (0-1) mg/dL Urine Leukocytes (NEGATIVE) Urine WBC (Auto) (0-5) /HPF Urine RBC (Auto) (0-2) /HPF U Epithel Cells (Auto) (FEW) /HPF Urine Bacteria (Auto) (NEGATIVE) /HPF Urine RBC (0-5) Campos/ul Urine Mucus (Auto) (NEGATIVE) /HPF Ur Culture Indicated? Urine Glucose (NEGATIVE) mg/dL Influenza Type A Ag (NEGATIVE) Influenza Type B Ag (NEGATIVE) RSV (PCR) (Negative) SARS-CoV-2 (PCR) (NEGATIVE) 03/09/22 03/09/22 03/09/22 Range/Units 17:30 17:12 16:30 WBC 13.9 H (4.0-10.5) x10^3/uL RBC 3.74 L (4.1-5.4) x10^6/uL Hgb 9.9 L (12.0-16.0) g/dL Hct 32.2 L (35-47) % MCV 86.1 (78-100) fL MCH 26.5 (26-32) pg MCHC 30.7 L (32-36) g/dL RDW 16.0 H (11.5-14.0) % Plt Count 467 H (150-450) x10^3/uL MPV 9.8 (7.5-11.0) fL Gran % 79.7 H (36.0-66.0) % Immature Gran % (Auto) 0.6 H (0.00-0.4) % Nucleat RBC Rel Count 0.0 (0.00-0.1) % Eos # (Auto) 0.18 (0-0.5) x10^3/uL Immature Gran # (Auto) 0.09 H (0.00-0.03) x10^3u/L Absolute Lymphs (auto) 1.13 (1.0-4.6) x10^3/uL Absolute Monos (auto) 1.39 H (0.0-1.3) x10^3/uL Absolute Nucleated RBC 0.00 (0.00-0.01) x10^3u/L Lymphocytes % 8.2 L (24.0-44.0) % Monocytes % 10.0 (0.0-12.0) % Eosinophils % 1.3 (0.00-5.0) % Basophils % 0.2 (0.0-0.4) % Absolute Granulocytes 11.03 H (1.4-6.9) x10^3/uL Basophils # 0.03 (0-0.4) x10^3/uL D-Dimer (0.0-0.50) mg/L Sodium (137-145) mmol/L Potassium (3.5-5.1) mmol/L Chloride (98-107) mmol/L Carbon Dioxide (22-30) mmol/L Anion Gap (5-15) MEQ/L BUN (7-17) mg/dL Creatinine (0.52-1.04) mg/dL Estimated GFR ML/MIN Glucose (74-106) mg/dL Calcium (8.4-10.2) mg/dL Magnesium (1.6-2.3) mg/dL Total Bilirubin (0.2-1.3) mg/dL AST (14-36) U/L ALT (0-35) U/L Alkaline Phosphatase (38-126) U/L Troponin I (0.000-0.034) ng/mL Serum Total Protein (6.3-8.2) g/dL Albumin (3.5-5.0) g/dL Urinalys Dipstick Clnc MAIN LAB Urine Color YELLOW (YELLOW) Urine Appearance CLEAR (CLEAR) Urine pH 5.5 (5-6) Ur Specific Alex 1.015 (1.005-1.025) POC Urine Protein Conf TRACE A (Negative) Urine Ketones NEGATIVE (NEGATIVE) Urine Nitrite NEGATIVE (NEGATIVE) Urine Bilirubin NEGATIVE (NEGATIVE) Urine Urobilinogen 0.2 (0-1) mg/dL Urine Leukocytes NEGATIVE (NEGATIVE) Urine WBC (Auto) 0-2 (0-5) /HPF Urine RBC (Auto) 0-2 (0-2) /HPF U Epithel Cells (Auto) RARE (FEW) /HPF Urine Bacteria (Auto) NONE (NEGATIVE) /HPF Urine RBC NEGATIVE (0-5) Campos/ul Urine Mucus (Auto) SLIGHT A (NEGATIVE) /HPF Ur Culture Indicated? NO Urine Glucose NEGATIVE (NEGATIVE) mg/dL Influenza Type A Ag NEGATIVE (NEGATIVE) Influenza Type B Ag NEGATIVE (NEGATIVE) RSV (PCR) NEGATIVE (Negative) SARS-CoV-2 (PCR) NEGATIVE (NEGATIVE) - Progress Progress: unchanged Progress Note: 03/09/22 21:30 Bilateral lower extremity venous Dopplers negative for DVT Counseled pt/family regarding: lab results, diagnosis, need for follow-up - Departure Departure Disposition: Home Clinical Impression: Leg weakness, bilateral, Leg pain, bilateral, Anemia Condition: Stable Critical Care Time: No Referrals: CARYN LITTLE MD [Primary Care Provider] - Follow up/PCP as directed Additional Instructions: Take your medication as prescribed. Follow-up with your typesetters printer and your primary care provider tomorrow morning, 03/10/2022, for further evaluation and management.
[2022-03-09] MEDS ORDERED: Sodium Chloride 0.9% 500 ML 500 ML IV ONE ×2 (16:24→16:48)
[2022-03-09 17:18] LABS: INFLUENZA A NEGATIVE (NEGATIVE); INFLUENZA B NEGATIVE (NEGATIVE); RESPIRATORY SYNCTIAL VIRUS NEGATIVE (Negative); SARS-CoV-2 Xpert Express NEGATIVE (NEGATIVE)
[2022-03-09 18:00] LABS: Absolute Neutrophil Ct (ANC) 11.03 x10^3/uL (1.4-6.9); Basophil (Absolute #) 0.03 x10^3/uL (0-0.4); Eosinophil % 1.3 % (0.00-5.0); Eosinophil (Absolute #) 0.18 x10^3/uL (0-0.5); Hematocrit 32.2 % (35-47); Hemoglobin 9.9 g/dL (12.0-16.0); Lymphocyte (Absolute #) 1.13 x10^3/uL (1.0-4.6); Lymphocytes % 8.2 % (24.0-44.0); Mean Cell Volume 86.1 fL (78-100); Mean Corpuscular Hemoglobin 26.5 pg (26-32); Mean Corpuscular Hgb Concent. 30.7 g/dL (32-36); Mean Platelet Volume 9.8 fL (7.5-11.0); Monocyte (Absolute #) 1.39 x10^3/uL (0.0-1.3); Neutrophil % 79.7 % (36.0-66.0); Platelet Count 467 x10^3/uL (150-450); Red Blood Count 3.74 x10^6/uL (4.1-5.4); White Blood Count 13.9 x10^3/uL (4.0-10.5)
[2022-03-09 18:06] LABS: ALBUMIN 3.1 g/dL (3.5-5.0); ANION GAP 8.5 MEQ/L (5-15); BILIRUBIN,TOTAL 0.4 mg/dL (0.2-1.3); Calcium 8.9 mg/dL (8.4-10.2); Creatinine 1 1.24 mg/dL (0.52-1.04); EST GLOMERULAR FILTRATION RATE 43.4 ML/MIN; MAGNESIUM 2.1 mg/dL (1.6-2.3); Potassium 4.8 mmol/L (3.5-5.1); Total Protein 6.7 g/dL (6.3-8.2)
[2022-03-09 20:05] VITALS: BP 133/71
[2022-03-09 21:46] LABS: Appearance CLEAR (CLEAR); Bilirubin NEGATIVE (NEGATIVE); Dipstick done @ ? MAIN LAB; Epithelial Cells RARE /HPF (FEW); Glucose NEGATIVE (NEGATIVE); Ketones NEGATIVE (NEGATIVE); Mucus SLIGHT /HPF (NEGATIVE); Nitrite NEGATIVE (NEGATIVE); Ph 5.5 (5-6); Protein,Urine Dip TRACE (Negative); RBC 0-2 /HPF (0-2); RBC NEGATIVE Ery/ul (0-5); Specific Gravity 1.015 (1.005-1.025); Urobilinogen 0.2 mg/dL (0-1); WBC 0-2 /HPF (0-5)
[2022-03-09 21:47] LABS: Urine Cultured Indicated? NO
[2022-03-09 21:55] VITALS: PULSE 70; O2SAT 94
--- NOTE | 2022-03-10 08:39 | XRAY ---
Indication: Bilateral leg pain. Elevated d-dimer. Two-dimensional sonogram and color Doppler imaging of the major venous vessels the left and right leg performed. Comparison: None No thrombus seen in the examined deep venous vessels of the left and right leg including greater saphenous vein. Veins demonstrate normal compressibility. Venous waveforms are normal with and without augmentation. Impression: Left and right legs negative for DVT. Comment: Preliminary report was given.
== END 2022-03-09 22:13 | disposition home or self-care (01) ==
LOC: ED 14:17
DX: M79.604 Pain in right leg (principal); M79.605 Pain in left leg; M62.81 Muscle weakness (generalized); D64.9 Anemia, unspecified; R43.9 Unspecified disturbances of smell and taste; R53.83 Other fatigue; E78.5 Hyperlipidemia, unspecified; I12.9 Hypertensive chronic kidney disease with stage 1 through stage 4 chronic kidney disease, or unspecified chronic kidney disease; E11.22 Type 2 diabetes mellitus with diabetic chronic kidney disease; N18.9 Chronic kidney disease, unspecified; Z79.899 Other long term (current) drug therapy; Z20.828 Contact with and (suspected) exposure to other viral communicable diseases
CPT/HCPCS: 0241U; 36000; 36415; 80053; 81015; 83735; 84484; 85025; 85379; 93970; 99284

== ENCOUNTER 2023-07-31 13:57 | Emergency (ER) | payer MEDICARE ==
[2023-07-31 14:10] VITALS: TEMP 97.9
--- NOTE | 2023-07-31 14:55 | ERPHSYRPT ---
- History of Present Illness Time Seen by Provider: 07/31/23 14:15 Source: patient, family Exam Limitations: no limitations Patient Subjective Stated Complaint: pt here for generally not feeling well, cough, productive thick sputum,sob at times, weakness. no fever Triage Nursing Assessment: pt alert, walked in with family, alert, resp labored at times . no cough at this time, skin w/d/p. moves all ext well. no edema noted, Physician History: This is an 87-year-old white female patient who presents with multiple medical issues today including dysuria, cough and back pain. Patient states her symptoms have been present for approximately 1 week. Patient has been told she has chronic bronchitis. She does see a fundraising director for her chronic renal issues. She has a history of hypothyroidism, hypertension, diabetes, hyperlipidemia and osteoporosis. Patient denies chest pain. She does not have shortness of breath. The primary issues today are dysuria and back pain. She did not fall. Timing/Duration: week(s) (1) Severity: mild (To moderate) Modifying Factors: Improves With: nothing Associated Symptoms: cough, other (Dysuria and back pain), No abdominal pain, No shortness of breath, No chest pain Allergies/Adverse Reactions: clonidine Allergy (Verified 07/31/23 14:06) dipyridamole [From Aggrenox] Allergy (Verified 07/31/23 14:06) Home Medications: Amlodipine Besylate 5 mg PO BID 06/28/17 [History] Aspirin 81 gm Chew [Baby Aspirin 81 mg Chew] 81 mg PO HS 06/28/17 [History] HydrALAzine HCL 25 MG TAB [Apresoline 25 MG TABLET] 50 mg PO BID 06/28/17 [History] Levothyroxine Sodium 112 Mcg [Synthroid 112 Mcg] 125 mcg PO DAILY 06/28/17 [History] Losartan Potassium 50 mg PO BID 06/28/17 [History] Metoprolol Tartrate 25 mg PO BID 06/28/17 [History] Multivitamins,Therapeutic Tab* [Theragran Multivitamin] 1 tab PO DAILY 06/11 11/28 [History] Rosuvastatin Calcium 20 mg PO HS 06/28/17 [History] Vit C/E/Zn/Coppr/Lutein/Zeaxan [Preservision Areds 2 Softgel] 1 each PO BID 06/28/17 [History] Furosemide 20 mg [Lasix 20 mg] 20 mg PO UD PRN 10/02/18 [History] Potassium Chloride Tab* [Klor Con 10 MEQ] 10 meq PO 3XW 10/02/18 [History] Albuterol Sulfate [Albuterol Sulfate Hfa] 2 inh PO DAILY 03/09/22 [History] Tiotropium [place] [Spiriva Handihaler] 1 cap IN DAILY 03/09/22 [History] Hx Tetanus, Diphtheria Vaccination/Date Given: No Hx Influenza Vaccination/Date Given: Yes Hx Pneumococcal Vaccination/Date Given: Yes Immunizations Up to Date: Yes Travel Risk - International Travel Have you traveled outside of the country in past 3 weeks: No - Emerging Infectious Disease Are you exhibiting symptoms associated with any current EIDs: Yes Symptoms: Cough: New Onset, Shortness of Breath - Review of Systems Constitutional: No Symptoms Eyes: No Symptoms Ears, Nose, & Throat: No Symptoms Respiratory: Cough Cardiac: No Symptoms Abdominal/Gastrointestinal: No Symptoms Genitourinary Symptoms: Dysuria, Flank Pain (Bilateral) Musculoskeletal: Back Pain Skin: No Symptoms Neurological: No Symptoms Psychological: No Symptoms Endocrine: No Symptoms Hematologic/Lymphatic: No Symptoms Immunological/Allergic: No Symptoms All Other Systems: Reviewed and Negative - Past Medical History Pertinent Past Medical History: Yes Neurological History: Seizures ENT History: No Pertinent History Cardiac History: High Cholesterol, Hypertension Respiratory History: No Pertinent History Endocrine Medical History: Hypothyroidism Musculoskeletal History: Fractures, Osteoporosis GI Medical History: No Pertinent History History: No Pertinent History Psycho-Social History: No Pertinent History Female Reproductive Disorders: No Pertinent History Other Medical History: PATIENT REPORTS SEIZURE IN MAY WITH UNKNOWN CAUSE (ON MEDICATION), HEART MURMUR, POSSIBLE COPD, OSTEOPENIA, CKD - Past Surgical History Past Surgical History: Yes Neuro Surgical History: No Pertinent History Cardiac: No Pertinent History Respiratory: No Pertinent History Gastrointestinal: No Pertinent History Genitourinary: No Pertinent History Musculoskeletal: No Pertinent History Female Surgical History: Hysterectomy Other Surgical History: bladder surgery, skin ca removed - Social History Smoking Status: Never smoker Exposure to second hand smoke: No Drug Use: none Patient Lives Alone: Yes - Nursing Vital Signs Nursing Vital Signs: Initial Vital Signs Temperature 97.9 F 07/31/23 14:09 Pulse Rate 102 H 07/31/23 14:09 Respiratory Rate 36 H 07/31/23 14:09 Blood Pressure 125/60 07/31/23 14:09 O2 Sat by Pulse Oximetry 90 L 07/31/23 14:09 Pain Scale Pain Intensity 2 - Physical Exam General Appearance: no apparent distress, alert, anxiety, thin Eye Exam: PERRL/EOMI, eyes nml inspection Ears, Nose, Throat Exam: normal ENT inspection, moist mucous membranes Neck Exam: normal inspection, non-tender, supple, full range of motion Respiratory Exam: normal breath sounds, lungs clear, airway intact, No chest tenderness, No respiratory distress Cardiovascular Exam: regular rate/rhythm, normal heart sounds, normal peripheral pulses Gastrointestinal/Abdomen Exam: soft, normal bowel sounds, No tenderness Pelvic Exam: not done Rectal Exam: not done Back Exam: normal inspection, normal range of motion, CVA tenderness (Bilateral, mild), No vertebral tenderness Extremity Exam: normal inspection, normal range of motion, pelvis stable Neurologic Exam: alert, oriented x 3, cooperative, patient relations specialist II-XII nml as tested, normal mood/affect, nml cerebellar function, nml station & gait, sensation nml Skin Exam: normal color, warm, dry Lymphatic Exam: No adenopathy SpO2 Interpretation: borderline oxygenation SpO2: 90 O2 Delivery: Room Air - Course Nursing assessment & vital signs reviewed: Yes Ordered Tests: Active Orders 24 hr Category Date Time Status IV Insertion STAT Care 07/31/23 14:15 Active ABDOMEN AND PELVIS W/0 CONTRAS [CT] Stat Exams 07/31/23 14:15 Completed CHEST 1 VIEW (PORTABLE) Stat Exams 07/31/23 14:19 Completed RECONSTRUCTION [CT] Stat Exams 07/31/23 14:18 Completed AMYLASE Stat Lab 07/31/23 15:11 Completed BLOOD CULTURE Stat Lab 07/31/23 15:11 Received CBC W DIFF Stat Lab 07/31/23 15:11 Completed CMP Stat Lab 07/31/23 15:11 Completed CULTURE,URINE Stat Lab 07/31/23 16:00 Received LIPASE Stat Lab 07/31/23 15:11 Completed MONO SCREEN Stat Lab 07/31/23 15:11 Completed UA W/RFX UR CULTURE Stat Lab 07/31/23 16:00 Completed Medication Summary Generic Name Dose Route Start Last Admin Trade Name Freq PRN Reason Stop Dose Admin Furosemide 20 mg 08/01/23 16:22 07/31/23 16:48 Furosemide 20 Mg Tablet PO 08/01/23 16:23 Not Given STAT ONE Discontinued Medications Generic Name Dose Route Start Last Admin Trade Name Eliu PRN Reason Stop Dose Admin Ceftriaxone Sodium 1,000 mg 07/31/23 16:22 07/31/23 16:31 Ceftriaxone Sodium 1000 Mg Inj Vial IM 07/31/23 16:23 1,000 mg STAT ONE Administration Ceftriaxone Sodium Confirm 07/31/23 16:30 Ceftriaxone Sodium 1000 Mg Inj Vial Administered 07/31/23 16:31 Dose 1,000 mg .ROUTE .STK-MED ONE Lidocaine HCl Confirm 07/31/23 16:30 Lidocaine Hcl 1% 20 Ml Mdv 20 Ml Ml Administered 07/31/23 16:31 Dose 2 ml .ROUTE .[facility]-Trulio[facility] ONE Lab/Rad Data: Laboratory Result Diagrams 07/31/23 15:11 07/31/23 15:11 Laboratory Results 07/31/23 07/31/23 07/31/23 Range/Units 16:00 15:11 15:11 WBC (4.0-10.5) x10^3/uL RBC (4.1-5.4) x10^6/uL Hgb (12.0-16.0) g/dL Hct (35-47) % MCV (78-100) fL MCH (26-32) pg MCHC (32-36) g/dL RDW (11.5-14.0) % Plt Count (150-450) x10^3/uL MPV (7.5-11.0) fL Gran % (36.0-66.0) % Immature Gran % (Auto) (0.00-0.4) % Nucleat RBC Rel Count (0.00-0.1) % Eos # (Auto) (0-0.5) x10^3/uL Immature Gran # (Auto) (0.00-0.03) x10^3u/L Absolute Lymphs (auto) (1.0-4.6) x10^3/uL Absolute Monos (auto) (0.0-1.3) x10^3/uL Absolute Nucleated RBC (0.00-0.01) x10^3u/L Lymphocytes % (24.0-44.0) % Monocytes % (0.0-12.0) % Eosinophils % (0.00-5.0) % Basophils % (0.0-0.4) % Absolute Granulocytes (1.4-6.9) x10^3/uL Basophils # (0-0.4) x10^3/uL Sodium 134 L (135-145) mmol/L Potassium 3.8 (3.5-5.1) mmol/L Chloride 103 (98-107) mmol/L Carbon Dioxide 19 L (22-30) mmol/L Anion Gap 15.1 H (5-15) MEQ/L BUN 74 H (7-17) mg/dL Creatinine 2.40 H (0.52-1.04) mg/dL Estimated GFR 18.8 ML/MIN Glucose 108 H (74-106) mg/dL Calcium 8.7 (8.4-10.2) mg/dL Total Bilirubin 0.60 (0.2-1.3) mg/dL AST 122 H (14-36) U/L ALT 78 H (0-35) U/L Alkaline Phosphatase 122 (38-126) U/L Serum Total Protein 7.2 (6.3-8.2) g/dL Albumin 3.4 L (3.5-5.0) g/dL Amylase 64 (30-110) U/L Lipase 108 (23-300) U/L Urine Color Dark Yellow A (Yellow) Urine Appearance Turbid A (Clear) Urine pH 5.5 (4.6-8.0) Ur Specific [place] 1.015 (1.005-1.030) Urine Protein 100 A (Negative) Urine Glucose (UA) Negative (Negative) mg/dL Urine Ketones Negative (Negative) Urine Blood Moderate A (Negative) Urine Nitrite Negative (Negative) Urine Bilirubin Negative (Negative) Urine Urobilinogen 1.0 A (0.2) mg/dL Ur Leukocyte Esterase Large A (Negative) U Hyaline Cast (Auto) 11-20 (0-2) /LPF Urine Microscopic RBC 0-2 (0-5) /HPF Urine Microscopic WBC >100 A (0-5) /HPF Ur Epithelial Cells Moderate A (None Seen) /HPF Urine Bacteria Many A (None Seen) /HPF Urine Culture Reflexed YES (NO) Monoscreen NEGATIVE (NEGATIVE) Influenza Type A Ag (NEGATIVE) Influenza Type B Ag (NEGATIVE) RSV (PCR) (NEGATIVE) SARS-CoV-2 (PCR) (NEGATIVE) 07/31/23 07/31/23 Range/Units 15:11 14:35 WBC 15.1 H (4.0-10.5) x10^3/uL RBC 3.80 L (4.1-5.4) x10^6/uL Hgb 10.8 L (12.0-16.0) g/dL Hct 33.5 L (35-47) % MCV 88.2 (78-100) fL MCH 28.4 (26-32) pg MCHC 32.2 (32-36) g/dL RDW 14.4 H (11.5-14.0) % Plt Count 238 (150-450) x10^3/uL MPV 10.3 (7.5-11.0) fL Gran % 81.6 H (36.0-66.0) % Immature Gran % (Auto) 0.4 (0.00-0.4) % Nucleat RBC Rel Count 0.0 (0.00-0.1) % Eos # (Auto) 0.03 (0-0.5) x10^3/uL Immature Gran # (Auto) 0.06 H (0.00-0.03) x10^3u/L Absolute Lymphs (auto) 1.09 (1.0-4.6) x10^3/uL Absolute Monos (auto) 1.59 H (0.0-1.3) x10^3/uL Absolute Nucleated RBC 0.00 (0.00-0.01) x10^3u/L Lymphocytes % 7.2 L (24.0-44.0) % Monocytes % 10.5 (0.0-12.0) % Eosinophils % 0.2 (0.00-5.0) % Basophils % 0.1 (0.0-0.4) % Absolute Granulocytes 12.32 H (1.4-6.9) x10^3/uL Basophils # 0.02 (0-0.4) x10^3/uL Sodium (135-145) mmol/L Potassium (3.5-5.1) mmol/L Chloride (98-107) mmol/L Carbon Dioxide (22-30) mmol/L Anion Gap (5-15) MEQ/L BUN (7-17) mg/dL Creatinine (0.52-1.04) mg/dL Estimated GFR ML/MIN Glucose (74-106) mg/dL Calcium (8.4-10.2) mg/dL Total Bilirubin (0.2-1.3) mg/dL AST (14-36) U/L ALT (0-35) U/L Alkaline Phosphatase (38-126) U/L Serum Total Protein (6.3-8.2) g/dL Albumin (3.5-5.0) g/dL Amylase (30-110) U/L Lipase (23-300) U/L Urine Color (Yellow) Urine Appearance (Clear) Urine pH (4.6-8.0) Ur Specific [place] (1.005-1.030) Urine Protein (Negative) Urine Glucose (UA) (Negative) mg/dL Urine Ketones (Negative) Urine Blood (Negative) Urine Nitrite (Negative) Urine Bilirubin (Negative) Urine Urobilinogen (0.2) mg/dL Ur Leukocyte Esterase (Negative) U Hyaline Cast (Auto) (0-2) /LPF Urine Microscopic RBC (0-5) /HPF Urine Microscopic WBC (0-5) /HPF Ur Epithelial Cells (None Seen) /HPF Urine Bacteria (None Seen) /HPF Urine Culture Reflexed (NO) Monoscreen (NEGATIVE) Influenza Type A Ag NEGATIVE (NEGATIVE) Influenza Type B Ag NEGATIVE (NEGATIVE) RSV (PCR) NEGATIVE (NEGATIVE) SARS-CoV-2 (PCR) NEGATIVE (NEGATIVE) - Progress Progress: improved, re-examined Progress Note: 07/31/23 14:54 My medical decision making and the assignment of moderate complexity to this patient's medical issue today is based on review of the patient's past medical history, review the patient's medication list, review the patient drug allergy list, history present illness and physical findings on examination. The workup in this patient includes CBC, CMP, urinalysis, chest x-ray, CT scan of the abdomen pelvis, lumbar reconstruction, viral swabs, monotest. 07/31/23 14:55 Differential diagnosis includes pneumonia, bronchitis, urinary tract infection, ureterolithiasis, acute spinal abnormalities, abdominal aortic abnormality, v iral illness 07/31/23 16:19 Chest x-ray was interpreted by the radiologist and I reviewed the impression. Present states new mild, bibasilar consolidative infiltrate versus atelectasis. CT scan of the abdomen pelvis was interpreted by the radiologist and I reviewed the impression. The impression shows cardiomegaly with small left pleural effusion. There were chronic changes included pulmonary emphysema versus fibrosis/scarring. No abdominal aortic aneurysm present. There is a large hiatal hernia present with intrathoracic stomach. CT scan of the lumbar spine was interpreted by radiologist and I reviewed the impression. There is chronic findings of osteopenia and multilevel thoracolumba r degenerative spondylosis. There are no acute findings 07/31/23 16:45 Interpreted the patient's laboratory data results. The patient has leukocytosis, acute on chronic renal failure, elevated liver function tests and a urinary tract infection. We will contact [facility] in [facility] to transfer this patient. 07/31/23 17:24 I spoke with the emergency room physician at [facility] in [facility]. I reviewed the patient history, the presenting complaint, the workup results from our workup and the patient response to our management. He accepts the patient in transfer. The physician's name is Dr. Hester. Counseled pt/family regarding: lab results, diagnosis, need for follow-up, rad results Medical Desision Making - Independent Historian Additional History obtained from: Spouse - Diagnostic Testing Diagnostic test were ordered, analyzed, and reviewed by me: Yes Radiological Interpretation: Reviewed by me, Teleradiologist Report - Risk of complications The pt has a high risk of morbidity or mortality based on: Decision regarding hospitilization or escalation of hosp level of care - Departure Departure Disposition: Home Clinical Impression: Pulmonary infiltrates on CXR, Pleural effusion, left, UTI (urinary tract infection), Acute on chronic renal failure, Elevated LFTs Condition: Fair Critical Care Time: No Referrals: CARYN LITTLE MD [Primary Care Provider] - Follow up/PCP as directed
[2023-07-31 15:22] LABS: Absolute Neutrophil Ct (ANC) 12.32 x10^3/uL (1.4-6.9); BASOPHIL % 0.1 % (0.0-0.4); Basophil (Absolute #) 0.02 x10^3/uL (0-0.4); Eosinophil % 0.2 % (0.00-5.0); Eosinophil (Absolute #) 0.03 x10^3/uL (0-0.5); Hematocrit 33.5 % (35-47); Hemoglobin 10.8 g/dL (12.0-16.0); IMMATURE GRAN # 0.06 x10^3u/L (0.00-0.03); IMMATURE GRAN % 0.4 % (0.00-0.4); Lymphocyte (Absolute #) 1.09 x10^3/uL (1.0-4.6); Lymphocytes % 7.2 % (24.0-44.0); Mean Cell Volume 88.2 fL (78-100); Mean Corpuscular Hemoglobin 28.4 pg (26-32); Mean Corpuscular Hgb Concent. 32.2 g/dL (32-36); Mean Platelet Volume 10.3 fL (7.5-11.0); Monocyte (Absolute #) 1.59 x10^3/uL (0.0-1.3); Monocytes % 10.5 % (0.0-12.0); Neutrophil % 81.6 % (36.0-66.0); Platelet Count 238 x10^3/uL (150-450); Red Cell Distribution Width 14.4 % (11.5-14.0); White Blood Count 15.1 x10^3/uL (4.0-10.5)
[2023-07-31 15:30] LABS: ALBUMIN 3.4 g/dL (3.5-5.0); ANION GAP 15.1 MEQ/L (5-15); BILIRUBIN,TOTAL 0.6 mg/dL (0.2-1.3); Calcium 8.7 mg/dL (8.4-10.2); Creatinine 1 2.4 mg/dL (0.52-1.04); EST GLOMERULAR FILTRATION RATE 18.8 ML/MIN; Potassium 3.8 mmol/L (3.5-5.1); Total Protein 7.2 g/dL (6.3-8.2)
[2023-07-31 15:41] LABS: INFLUENZA A NEGATIVE (NEGATIVE); INFLUENZA B NEGATIVE (NEGATIVE); RESPIRATORY SYNCTIAL VIRUS NEGATIVE (NEGATIVE); SARS-CoV-2 Xpert Express NEGATIVE (NEGATIVE)
--- NOTE | 2023-07-31 16:07 | XRAY ---
Indication: Pain. Comparison January 18, 2022 Portable chest demonstrates new mild bibasilar consolidating infiltrates/atelectasis. Remaining heart and lungs unchanged again with COPD and large hiatal hernia with intrathoracic stomach. Bony thorax intact again with osteopenia and degenerative changes.
--- NOTE | 2023-07-31 16:13 | XRAY ---
Indication: Dysuria. Back pain. Multiple contiguous axial images obtained through the abdomen and pelvis without contrast. Comparison: None Lung bases hyperinflated with scattered fibrosis/scarring, small left effusion, bilateral dependent atelectasis, and small right lower lobe calcified granuloma. Heart enlarged with scattered coronary calcifications. Large hiatal hernia with intrathoracic stomach. Noncontrasted stomach and bowel loops appear nonobstructed. Suture material in the expected region of appendix. Previous hysterectomy. 2 cm left mid renal exophytic cyst. No free fluid/air. Remaining liver, gallbladder, pancreas, spleen, adrenal glands, kidneys, ureters, and bladder are unremarkable for noncontrast exam. Mild scattered aortoiliac calcifications without AAA. 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 Impression: 1. Cardiomegaly with small left effusion. Rule out cardiac decompensation/CHF versus fluid overload. 2. Chronic findings including pulmonary emphysema, or may fibrosis/scarring, large hiatal hernia with intrathoracic stomach, left renal cyst, arteriosclerotic disease, chronic bony findings, and old granulomatous disease.
--- NOTE | 2023-07-31 16:15 | XRAY ---
Indication: Dysuria. Back pain. Sagittal, coronal, and axial reformatted images lumbar spine obtained using raw data from same day CT abdomen and pelvis exam. 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 Impression: Chronic bony findings including osteopenia, multilevel degenerative spondylosis, and dextrorotoscoliosis. No acute findings.
[2023-07-31] MEDS ORDERED: XYLOCAINE 1% HCL 20 ML MDV ONE (16:30)
[2023-07-31] MEDS ORDERED: Rocephin 1000 MG INJ ONE (16:30)
[2023-07-31] MEDS: Rocephin 1000 MG INJ IM ONE (16:31)
[2023-07-31 16:38] LABS: Appearance Turbid (Clear); Bacteria Many /HPF (None Seen); Bilirubin Negative (Negative); Blood Moderate (Negative); Epithelial Cells Moderate /HPF (None Seen); Glucose, Urine Negative (Negative); Ketones Negative (Negative); Leukocyte Esterase Large (Negative); Nitrite Negative (Negative); Ph 5.5 (4.6-8.0); Protein,Urine Dip 100 (Negative); RBC 0-2 /HPF (0-5); Specific Gravity 1.015 (1.005-1.030); WBC >100 /HPF (0-5)
[2023-07-31 16:39] LABS: ADD URINE CULTURE? YES (NO)
[2023-07-31] MEDS: LASIX 20 MG PO ONE (16:48)
[2023-07-31 18:09] VITALS: BP 128/47; PULSE 90; RESP 30; O2SAT 95
[2023-07-31 19:18] LABS: Slide Review 1 YES
== END 2023-07-31 18:09 | disposition short-term general hospital (02) ==
LOC: ED 13:57
DX: N39.0 Urinary tract infection, site not specified (principal); R30.0 Dysuria; R05.9 Cough, unspecified; M54.9 Dorsalgia, unspecified; E11.9 Type 2 diabetes mellitus without complications; K44.9 Diaphragmatic hernia without obstruction or gangrene; R91.8 Other nonspecific abnormal finding of lung field; J90 Pleural effusion, not elsewhere classified; R94.5 Abnormal results of liver function studies; Z20.828 Contact with and (suspected) exposure to other viral communicable diseases
CPT/HCPCS: 0241U; 36000; 36415; 71045; 74176; 76376; 80053; 81001; 82150; 83690; 85025; 86308; 87040; 87077; 87086; 87186; 96372; 99284; J0696